=== PATIENT | female | born 2000 | race Caucasian/White ===

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

== ENCOUNTER 2019-05-06 08:32 | Emergency (ER) | payer SELFPAY ==
[2019-05-06] MEDS ORDERED: HYDROCODONE/CHLORPHEN 5 ML/OSYR ONE (09:44)
--- NOTE | 2019-05-06 10:26 | ER ---
Nurse's Notes [facility] Name: Violet Sams Age: 19 yrs Sex: Female : 2000 Arrival Date: 05/06/2019 Time: 08:37 Bed 6 Private MD: Diagnosis: Acute upper respiratory infection, unspecified Presentation: 05/05 08:44 Chief complaint: Patient states: coughing and sneezing that began 3 days ago. Denies ss fever. Coronavirus screen: The patient has NOT traveled to a country currently being monitored by the [facility] within the last 14 days. Proceed with normal triage procedures. Ebola Screen: Patient denies exposure to infectious person. Patient denies travel to an Ebola-affected area in the 21 days before illness onset. Initial Sepsis Screen: Does the patient meet any 2 criteria? No. Patient's initial sepsis screen is negative. Does the patient have a suspected source of infection? No. Patient's initial sepsis screen is negative. Risk Assessment: Do you want to hurt yourself or someone else? Patient reports no desire to harm self or others. 08:44 Method Of Arrival: Ambulatory ss 08:44 Acuity: LAURA 4 ss Historical: - Allergies: 08:46 No Known Allergies; ss - Home Meds: 08:46 Topamax Oral [Active]; ss - PSHx: 08:46 None; ss - Immunization history:: Adult Immunizations up to date. - Social history:: Smoking status: Patient denies any tobacco usage or history of. Screenin:49 Abuse screen: Denies threats or abuse. Nutritional screening: No deficits noted. em Tuberculosis screening: No symptoms or risk factors identified. Fall Risk None identified. Assessment: 09:28 General: Appears in no apparent distress. comfortable, Behavior is calm, cooperative, em Denies fever. Pain: Denies pain. Neuro: Level of Consciousness is awake, alert, obeys commands, Oriented to person, place, time, situation, Appropriate for age. Cardiovascular: Capillary refill < 3 seconds Patient's skin is warm and dry. Respiratory: Airway is patent Respiratory effort is even, unlabored, Respiratory pattern is regular, symmetrical, Breath sounds are clear bilaterally. GI: Patient currently denies nausea, vomiting. EENT: Nares are clear Oral mucosa is moist. Throat is clear is pink Reports pain when swallowing. Derm: Skin is intact, is healthy with good turgor, Skin is pink, warm \T\ dry. Musculoskeletal: Capillary refill < 3 seconds, Range of motion: intact in all extremities. Vital Signs: 08:44 BP 126 / 80; Pulse 76; Resp 15; Temp 97.0(TE); Pulse Ox 98% on R/A; Height 4 ft. 9 in. ss (144.78 cm); Pain 4/10; ED Course: 08:37 Patient arrived in ED. rg4 08:40 Teddy Donato NP is PHCP. pm1 08:40 Nsetor Montero MD is Attending Physician. pm1 08:41 Wagner Hameed, RN is Primary Nurse. em 08:46 Triage completed. ss 08:46 Arm band placed on right wrist. ss 08:49 Patient has correct armband on for positive identification. Bed in low position. Call em light in reach. Side rails up X2. Adult w/ patient. 09:30 Awaiting lab results. sv Administered Medications: 09:45 Drug: Tussionex Pennkinetic ER 5 ml Route: PO; em 10:30 Follow up: Response: No adverse reaction; Marked relief of symptoms em Outcome: 10:25 Discharge ordered by . pm1 10:45 Patient left the ED. ms Signatures: Carlie Trent RN RN Wagner Hameed RN RN em Villarreal, Maria ms Tabatha Walls RN RN Teddy Donato NP JUNIOR HIGH SCHOOL TEACHER pm1 Hansa Cook rg4
--- NOTE | 2019-05-06 10:26 | EDPHYS ---
Physician Documentation [facility] Name: Violet Sams Age: 19 yrs Sex: Female : 2000 Arrival Date: 05/06/2019 Time: 08:37 Bed 6 Private MD: ED Physician Nestor Montero HPI: 05/05 09:45 This 19 yrs old Female presents to ER via Ambulatory with complaints of Sore pm1 Throat, Cough. 09:45 The patient presents with sore throat. The patient describes throat pain as raw, pm1 scratchy. Onset: The symptoms/episode began/occurred 3 day(s) ago. Severity of symptoms: in the emergency department the symptoms are unchanged. Modifying factors: the symptoms are aggravated by swallowing, Patient's oral intake status: good. Associated signs and symptoms: Pertinent positives: cough, Pertinent negatives diarrhea, fever, shortness of breath, vomiting. The patient has not experienced similar symptoms in the past. The patient has not recently seen a physician. Historical: - Allergies: 08:46 No Known Allergies; ss - Home Meds: 08:46 Topamax Oral [Active]; ss - PSHx: 08:46 None; ss - Immunization history:: Adult Immunizations up to date. - Social history:: Smoking status: Patient denies any tobacco usage or history of. ROS: 09:45 Constitutional: Negative for fever, chills, and weight loss, Eyes: Negative for injury, pm1 pain, redness, and discharge. 09:45 Neck: Negative for injury, pain, and swelling, Cardiovascular: Negative for chest pain, palpitations, and edema. 09:45 Abdomen/GI: Negative for abdominal pain, nausea, vomiting, diarrhea, and constipation, Back: Negative for injury and pain, MS/Extremity: Negative for injury and deformity, Skin: Negative for injury, rash, and discoloration. 09:45 ENT: Positive for sore throat, Negative for ear pain. 09:45 Respiratory: Positive for cough, Negative for shortness of breath, sputum production, wheezing. 09:45 Neuro: Positive for dizziness, Negative for headache, numbness, tingling, visual changes. Exam: 09:45 Constitutional: This is a well developed, well nourished patient who is awake, alert, pm1 and in no acute distress. Head/Face: Normocephalic, atraumatic. Eyes: Pupils equal round and reactive to light, extra-ocular motions intact. Lids and lashes normal. Conjunctiva and sclera are non-icteric and not injected. Cornea within normal limits. Periorbital areas with no swelling, redness, or edema. ENT: Nares patent. No nasal discharge, no septal abnormalities noted. Tympanic membranes are normal and external auditory canals are clear. Oropharynx with no redness, swelling, or masses, exudates, or evidence of obstruction, uvula midline. Mucous membranes moist. Neck: Trachea midline, no thyromegaly or masses palpated, and no cervical lymphadenopathy. Supple, full range of motion without nuchal rigidity, or vertebral point tenderness. No Meningismus. Chest/axilla: Normal chest wall appearance and motion. Nontender with no deformity. No lesions are appreciated. Cardiovascular: Regular rate and rhythm with a normal S1 and S2. No gallops, murmurs, or rubs. Normal PMI, no JVD. No pulse deficits. Respiratory: Lungs have equal breath sounds bilaterally, clear to auscultation and percussion. No rales, rhonchi or wheezes noted. No increased work of breathing, no retractions or nasal flaring. Abdomen/GI: Soft, non-tender, with normal bowel sounds. No distension or tympany. No guarding or rebound. No evidence of tenderness throughout. Back: No spinal tenderness. No costovertebral tenderness. Full range of motion. Skin: Warm, dry with normal turgor. Normal color with no rashes, no lesions, and no evidence of cellulitis. MS/ Extremity: Pulses equal, no cyanosis. Neurovascular intact. Full, normal range of motion. 09:45 Neuro: Orientation: is normal, Motor: is normal, moves all fours, Gait: is steady, at a normal pace, without difficulty. Vital Signs: 08:44 BP 126 / 80; Pulse 76; Resp 15; Temp 97.0(TE); Pulse Ox 98% on R/A; Height 4 ft. 9 in. ss (144.78 cm); Pain 4/10; MDM: 08:43 Patient medically screened. pm1 10:24 Data reviewed: vital signs. Data interpreted: Pulse oximetry: on room air is 98 %. pm1 Interpretation: normal. Counseling: I had a detailed discussion with the patient and/or guardian regarding: the historical points, exam findings, and any diagnostic results supporting the discharge/admit diagnosis, lab results, the need for outpatient follow up, to return to the emergency department if symptoms worsen or persist or if there are any questions or concerns that arise at home. 10:27 ED course: FORESTRY AID Aware reviewed and no patient data found. pm1 05/05 09:16 Order name: Flu; Complete Time: 10:19 pm1 05/05 09:16 Order name: Strep; Complete Time: 10:19 pm1 05/05 10:06 Order name: Throat Culture EDMS Administered Medications: 09:45 Drug: Tussionex Pennkinetic ER 5 ml Route: PO; em 10:30 Follow up: Response: No adverse reaction; Marked relief of symptoms em Disposition: 11:18 Co-signature as Attending Physician, Nestor Montero MD. rn Disposition: 05/06/19 10:25 Discharged to Home. Impression: Acute upper respiratory infection, unspecified. - Condition is Stable. - Discharge Instructions: Antibiotic Resistance, Upper Respiratory Infection, Adult. - Prescriptions for Guaifenesin AC 10- 100 mg/5 mL Oral Liquid - take 10 milliliter by ORAL route every 4 hours As needed; 240 milliliter. - Work release form, Medication Reconciliation Form, Thank You Letter, Antibiotic Education, Prescription Opioid Use form. - Follow up: Emergency Department; When: As needed; Reason: Worsening of condition. Follow up: Private Physician; When: 2 - 3 days; Reason: Recheck today's complaints, Continuance of care, Re-evaluation by your physician. - Problem is new. - Symptoms have improved. Signatures: Dispatcher [employer] EDMS Wagner Hameed RN RN Fay Chavez ms, Roman, MD MD rn Smirch, Shelby, RN RN ss Marinas, Patrick, DANETTE MAITRE D pm1 Corrections: (The following items were deleted from the chart) 10:45 10:25 05/06/2019 10:25 Discharged to Home. Impression: Acute upper respiratory ms infection, unspecified. Condition is Stable. Forms are Medication Reconciliation Form, Thank You Letter, Antibiotic Education, Prescription Opioid Use. Follow up: Emergency Department; When: As needed; Reason: Worsening of condition. Follow up: Private Physician; When: 2 - 3 days; Reason: Recheck today's complaints, Continuance of care, Re-evaluation by your physician. Problem is new. Symptoms have improved. pm1
[2019-05-06 10:52] VITALS: BP 126/80; TEMP 97; O2SAT 98
== END 2019-05-06 10:45 | disposition home or self-care (01) ==
LOC: ER 08:32
DX: J06.9 Acute upper respiratory infection, unspecified (principal)
CPT/HCPCS: 87070; 87081; 87804; 99282

== ENCOUNTER 2019-07-13 08:52 | Emergency (ER) | payer SELFPAY ==
--- OUTSIDE RECORDS SUMMARY | 2019-07-13 08:55 | XMS REPORT ---
:2000 Author Organization [facility] t Address [address] [place] [address] Care Team Providers Name Role Phone RACHEL Attending Clinician Unavailable SALMA Attending Clinician Unavailable Problems Condition Condition Condition Status Onset Resolution Last Treating Co mments Source Name Details Category Date Date Treatment Clinician Date History of History of Problem Resolve Univers Anorexia Anorexia [facility] [place] [facility] History of History of Problem Resolve Univers major major d [place]y [place] [facility] History of History of Problem Resolve Univers PCOS PCOS [facility] [place] [facility] Anxiety Anxiety Problem Active [facility] [place] [facility] Major Major Problem Active Univers depression depression [facility] [place] [facility] BMI BMI Problem Active Univers 25.0-25.9, 25.0-25.9, it y of adult adult [place] Physici ans Allergies, Adverse Reactions, Alerts This patient has no known allergies or adverse reactions. Family History Family Member Diagnosis Comments Start Date Stop Date Source Sibling Family history of [facility] [place] [facility] Physicians Mother Family history of [facility] [place] [facility] Father Family history of [facility] [place] [facility] Physicians Social History Smoking Status Start Date Stop Date Source Never smoker University [facility] x[facility] Physicians Medications Ordered Filled Start Stop Current Ordering Indication Dosage Frequency Signature Comments Components Source Medication Medication Date Date Medication? Clinician (SIG) Name Name Vistaril 50 Vistaril 50 2017-02 Yes MINGO TAKE 1 Univers MG Oral MG Oral 1-12 SALMA CAPSULE AT ity of Capsule Capsule 00:00: N.P. BEDTIME. [place] as 00 Physici ans Lexapro 5 Lexapro 5 2017-02 Yes MINGO 1 QD TAKE 1 Univers MG Oral MG Oral 1-12 SALMA TABLET ity of Tablet Tablet 00:00: N.P. DAILY. [place] 00 Physici ans metFORMIN metFORMIN Yes QD TAKE 1 Uni vers HCl - 500 HCl - 500 TABLET ity of MG Oral MG Oral DAILY [place] Tablet Tablet DIRECTED. Physic i ans Lexapro 10 Lexapro 10 Yes Uni vers MG Oral MG Oral ity of Tablet Tablet [place] [facility]ici ans Vital Signs Vital Name Observation Time Observation Value Comments Source BP Systolic 2018-01-08 122 mm[Hg] Location: [facility] 11:35:00 Position: [place] Physician s Sitting BP Diastolic 2018-01-08 78 mm[Hg] Location: [facility] 11:35:00 Position: [place] Physician s Sitting Height 2018-01-08 62 [in_us] [facility] 11:35:00 [place] Physician s Weight 2018-01-08 138.6 [lb_av] [facility] 11:35:00 [place] [facility] s Body Mass Index 2018-01-08 25.35 kg/m2 [place] o f Calculated :35:00 [place] [facility] s Temperature 2018-01-08 97.6 [degF] [facility] 11:35:00 [place] [facility] Heart Rate 2018-01-08 65 /min [facility] 11:35:00 [place] [facility] Respiration Rate 2018-01-08 16 /min [facility] 11:35:00 [place] [facility] O2 SAT 2018-01-08 100 % [facility] 11:35:00 [place] [facility] Procedures Procedure Date / Time Performed Performing Clinician Sourc e [QLH] CBC (INCLUDES 2018-01-08 00:00:00 [facility] DIFF/PLT) Physicians [[facility]] CMP W/EGFR 2018-01-08 00:00:00 [facility] Physicians [facility] Physicians Encounters Start End Encounter Admission Attending Care Care Encounter Source Date/Time Date/Time Type Type Clinicians Facility Department ID 2018-02-08 2018-02-08 Manpreet ESME RAMOS [facility] [id number] Univers 12:00:00 12:00:00 t; GISELLE RAMOS, LAYBOY OPERATOR it y of ESME GISELLE, [place] LAYBOY OPERATOR Physici ans 2018-01-23 2018-01-23 REINA Shaffer [facility] [id number] Univers 09:00:00 09:00:00 t; DANETTE AGIULA ity of [place], [place] DANETTE AGUILA Physi ci ans 2018-01-08 2018-01-08 REINA Shaffer [facility] [id number] Univers 11:30:00 11:30:00 t; MINGO, JUNK DEALER Health and ity of [facility] DANETTE AGUILA Center - Phys jessenia Kimball ans Results Test Description Test Time Test Comments Results Result Comments Source [[facility]] CMP W/EGFR 2018-01-10 10:11:00 Test Item Value Reference Range Interpretation Comme nts GLUCOSE; Normal (test code = 84 mg/dl 65-99 N Fasting reference interval 1547-9) UREA NITROGEN (BUN) (test 8 mg/dl 7-20 N code = UREA NITROGEN (BUN)) CREATININE (test code = 0.71 mg/dl 0.50-1.00 N CREATININE) eGFR NON- 124 {ML/MIN/1.7} > OR = 60 N (test code = eGFR NON-) eGFR (test 144 {ML/MIN/1.7} > OR = 60 N code = eGFR ) BUN/CREATININE RATIO (test NOT APPLICABLE 08-18 code = BUN/CREATININE RATIO) SODIUM (test code = SODIUM) 141 mmol/L 135-146 N POTASSIUM (test code = 4.4 mmol/L 3.8-5.1 N POTASSIUM) CHLORIDE (test code = 105 mmol/L 98-110 N CHLORIDE) CARBON DIOXIDE (test code = 30 mmol/L 20-32 N CARBON DIOXIDE) CALCIUM (test code = CALCIUM) 9.1 mg/dl 8.9-10.4 N PROTEIN, TOTAL (test code = 6.6 g/dl 6.3-8.2 N PROTEIN, TOTAL) ALBUMIN (test code = ALBUMIN) 3.8 g/dl 3.6-5.1 N GLOBULIN (test code = 2.8 {G/DL CALC} 2.0-3.8 N GLOBULIN) ALBUMIN/GLOBULIN RATIO (test 1.4 {CALC} 1.0-2.5 N code = ALBUMIN/GLOBULIN RATIO) BILIRUBIN, TOTAL; Normal 0.3 mg/dl 0.2-1.1 N (test code = 43907-0) ALKALINE PHSPHATASE (test 110 u/l 47-176 N code = ALKALINE PHSPHATASE) AST; Normal (test code = 12 u/l 12-32 N 1916-6) ALT; Normal (test code = 10 u/l 5-32 N 1742-6) [facility] Physicians[[facility]] CBC (INCLUDES DIFF/PLT)2018-01-10 10:11:00 Test Item Value Reference Range Interpretation Comments WHITE BLOOD CELL COUNT 7.1 {Thousand/u} 4.5-13.0 N (test code = WHITE BLOOD CELL COUNT) RED BLOOD CELL COUNT (test 4.25 {Million/uL} 3.80-5.10 N code = RED BLOOD CELL COUNT) HEMAGLOBIN; Normal (test 12.2 g/dl 11.5-15.3 N code = 80817-5) HEMATOCRIT; Normal (test 37.4 % 34.0-46.0 N code = 4544-3) MCV; Normal (test code = 88.0 fL 78.0-98.0 N 787-2) MCHC; Normal (test code = 32.6 g/dl 31.0-36.0 N 25516-9) RDW; Normal (test code = 12.9 % 11.0-15.0 N 788-0) PLATELET COUNT; Normal 251 {Thousand/u} 140-400 N (test code = 777-3) MPV; Normal (test code = 10.9 fL 7.5-12.5 N 27928-1) ABSOLUTE NEUTROPHILS (test 4367 {cells/uL} 4110-4454 N code = ABSOLUTE NEUTROPHILS) ABSOLUTE LYMPHOCYTES (test 2066 {cells/uL} 1334-5565 N code = ABSOLUTE LYMPHOCYTES) ABSOLUTE MONOCYTES (test 561 {cells/uL} 200-900 N code = ABSOLUTE MONOCYTES) ABSOLUTE EOSINOPHILS (test 78 {cells/uL} 15-500 N code = ABSOLUTE EOSINOPHILS) ABSOLUTE BASOPHILS (test 28 {cells/uL} 0-200 N code = ABSOLUTE BASOPHILS) NEUTROPHILS (test code = 61.5 % N NEUTROPHILS) LYMPHOCYTES (test code = 29.1 % N LYMPHOCYTES) MONOCYTES; Normal (test 7.9 % N code = 67919-3) EOSINOPHILS; Normal (test 1.1 % N code = 04333-1) BASOPHILS; Normal (test 0.4 % N code = 15145-1) [facility] [place]
--- NOTE | 2019-07-13 09:49 | ER ---
Nurse's Notes [facility] Name: Violet Sams Age: 19 yrs Sex: Female : 2000 Arrival Date: 07/13/2019 Time: 08:54 Bed 17 Private MD: Diagnosis: Rash and other nonspecific skin eruption;Erythema multiforme Presentation: 07/12 09:21 Chief complaint: Patient states: stomach feels swollen, thinks she may be constipated, iw usually takes laxatives, last BM was morning but only a small amount, also has a rash X 4 days, was seen in [place] ER, was told it was either bug bites or folliculitis , was told to put hydrocortisone cream on it, rash started spreading yesterday, has itchiness to palm of hands and feet. Coronavirus screen: Proceed with normal triage. Patient denies a cough. Patient denies shortness of breath or difficulty breathing. Patient denies measured and/or subjective temperature greater than 100.4F prior to today's visit. Patient denies travel on a cruise ship or to a country the [facility] currently lists as an affected area. Patient denies contact with known and/or suspected case of COVID-19. Ebola Screen: Patient negative for fever greater than or equal to 101.5 degrees Fahrenheit, and additional compatible Ebola Virus Disease symptoms Patient denies exposure to infectious person. Patient denies travel to an Ebola-affected area in the 21 days before illness onset. No symptoms or risks identified at this time. Anaphylaxis evaluation, the patient reports or I have noted the following symptoms which indicate a significant risk of anaphylaxis:. Initial Sepsis Screen: Does the patient meet any 2 criteria? No. Patient's initial sepsis screen is negative. Does the patient have a suspected source of infection? No. Patient's initial sepsis screen is negative. Risk Assessment: Do you want to hurt yourself or someone else? Patient reports no desire to harm self or others. 09:21 Method Of Arrival: Ambulatory iw 09:21 Acuity: LAURA 3 iw 09:24 Onset of symptoms was July 09, 2019. iw Historical: - Allergies: 09: No Known Allergies; iw - Home Meds: 09:26 Lexapro 20 mg Oral tab 1 tab once daily [Active]; phentermine oral oral once daily iw [Active]; 09:27 Topamax Oral [Active]; iw - PSHx: 09:26 None; iw - Family history:: not pertinent. - Hospitalizations: : No recent hospitalization is reported. Screenin:45 Abuse screen: Denies threats or abuse. Nutritional screening: No deficits noted. aa5 Tuberculosis screening: No symptoms or risk factors identified. Fall Risk None identified. Assessment: 09:45 General: Appears comfortable, Behavior is calm, cooperative. Pain: Denies pain. Neuro: aa5 Level of Consciousness is awake, alert, obeys commands, Oriented to person, place, time, situation. Cardiovascular: Patient's skin is warm and dry. Respiratory: Airway is patent Respiratory effort is even, unlabored, Respiratory pattern is regular, symmetrical. GI: Abdomen is round non-distended, Bowel sounds present X 4 quads. Abd is soft and non tender X 4 quads. Pt reports pain with BM yesterday. : No signs and/or symptoms were reported regarding the genitourinary system. EENT: No signs and/or symptoms were reported regarding the EENT system. Derm: Rash noted that is red, raised, on abdomen. Musculoskeletal: Range of motion: intact in all extremities. 10:25 Reassessment: Patient is alert, oriented x 3, equal unlabored respirations, skin aa5 warm/dry/pink. Vital Signs: 09:21 BP 127 / ???; Pulse 69; Resp 16; Temp 97.9; Pulse Ox 97% on R/A; Weight 70.76 kg; iw ED Course: 08:54 Patient arrived in ED. as 09:24 Triage completed. iw 09:27 Arm band placed on. iw 09:29 Nestor Montero MD is Attending Physician. rn 09:30 Jaylene Avina, ELTON is Primary Nurse. aa5 09:45 Patient has correct armband on for positive identification. Placed in gown. Bed in low aa5 position. Call light in reach. Side rails up X2. 10:25 No provider procedures requiring assistance completed. Patient did not have IV access aa5 during this emergency room visit. Administered Medications: 09:57 Drug: SOLU-Medrol 125 mg Route: IM; Site: right deltoid; aa5 10:25 Follow up: Response: No adverse reaction aa5 Outcome: 09:49 Discharge ordered by . rn 10:25 Discharged to home ambulatory. aa5 10:25 Condition: stable 10:25 Discharge instructions given to patient, Instructed on discharge instructions, follow up and referral plans. medication usage, Demonstrated understanding of instructions, follow-up care, medications, Prescriptions given X 2. 10:30 Patient left the ED. aa5 Signatures: Lilliam Weiner Irene, RN Nestor Dias MD MD rn Calderon, Audri, RN RN aa5
--- NOTE | 2019-07-13 09:49 | EDPHYS ---
Physician Documentation [facility] Name: Violet Sams Age: 19 yrs Sex: Female : 2000 Arrival Date: 07/13/2019 Time: 08:54 Bed 17 Private MD: ED Physician Nestor Montero HPI: 07/12 09:40 This 19 yrs old Female presents to ER via Ambulatory with complaints of Rash, rn Itching, constipation. 09:40 The patient's rash thought to be caused by an unknown cause. The rash is located on the rn abdomen. The rash can be described as erythematous. Onset: The symptoms/episode began/occurred 1 week(s) ago. Severity of symptoms: At their worst the symptoms were mild in the emergency department the symptoms are unchanged. The patient has not experienced similar symptoms in the past. The patient has been recently seen by a physician:. Reports rash for a few days, itchy, seen at outside ER this week and told might be bed bugs or bites. No fever. Reports rash is worse but has not spread from torso. Also reports constipation, is common for her, last BM this morning, usually helped by laxatives, no vomiting. . Historical: - Allergies: 09:26 No Known Allergies; iw - Home Meds: 09:26 Lexapro 20 mg Oral tab 1 tab once daily [Active]; phentermine oral oral once daily iw [Active]; 09:27 Topamax Oral [Active]; iw - PSHx: 09:26 None; iw - Family history:: not pertinent. - Hospitalizations: : No recent hospitalization is reported. ROS: 09:40 Constitutional: Negative for fever, chills, and weight loss, Eyes: Negative for injury, rn pain, redness, and discharge, Cardiovascular: Negative for chest pain, palpitations, and edema, Respiratory: Negative for shortness of breath, cough, wheezing, and pleuritic chest pain, Abdomen/GI: + constipation MS/Extremity: Negative for injury and deformity, Skin: + rash Neuro: Negative for headache, weakness, numbness, tingling, and seizure. Exam: 09:40 Constitutional: This is a well developed, well nourished patient who is awake, alert, rn and in no acute distress. Ambulatory to room without difficulty or assistance. Head/Face: Normocephalic, atraumatic. Eyes: Pupils equal round and reactive to light, extra-ocular motions intact. Lids and lashes normal. Conjunctiva and sclera are non-icteric and not injected. Cornea within normal limits. Periorbital areas with no swelling, redness, or edema. Cardiovascular: Regular rate and rhythm. No pulse deficits. Respiratory: No increased work of breathing, no retractions or nasal flaring. Abdomen/GI: soft, non-tender, no peritoneal signs. Skin: Warm, dry, anterior torso with numerous target-like erythematous lesions, no bullae, no skin sloughing, no rash on palms/soles/extremities. Rash blanches. MS/ Extremity: Pulses equal, no cyanosis. Neurovascular intact. Full, normal range of motion. Equal circumference. Vital Signs: 09:21 BP 127 / ???; Pulse 69; Resp 16; Temp 97.9; Pulse Ox 97% on R/A; Weight 70.76 kg; iw MDM: 09:29 Patient medically screened. rn 09:48 Differential diagnosis: fungal infection, bug bites, erythema multiforme. Data rn reviewed: vital signs, nurses notes, and as a result, I will discharge patient. Counseling: I had a detailed discussion with the patient and/or guardian regarding: the historical points, exam findings, and any diagnostic results supporting the discharge/admit diagnosis, the need for outpatient follow up, to return to the emergency department if symptoms worsen or persist or if there are any questions or concerns that arise at home. Special discussion: I discussed with the patient/guardian in detail that at this point there is no indication for admission to the hospital. It is understood, however, that if the symptoms persist or worsen the patient needs to return immediately for re-evaluation. Administered Medications: 09:57 Drug: SOLU-Medrol 125 mg Route: IM; Site: right deltoid; aa5 10:25 Follow up: Response: No adverse reaction aa5 Disposition: 07/13/19 09:49 Discharged to Home. Impression: Rash and other nonspecific skin eruption, Erythema multiforme. - Condition is Stable. - Discharge Instructions: Erythema Multiforme, Rash. - Prescriptions for Hydroxyzine HCl 50 mg Oral Tablet - take 1 tablet by ORAL route every 8-12 hours As needed; 20 tablet. Medrol (Nicola) 4 mg Oral Tablets, Dose Pack - take 1 tablet by ORAL route as directed - follow package instructions; 1 packet. - Medication Reconciliation Form, Thank You Letter, Antibiotic Education, Prescription Opioid Use, Work release form form. - Follow up: Private Physician; When: As needed; Reason: Recheck today's complaints, Re-evaluation by your physician. - Problem is new. - Symptoms are unchanged. Signatures: May Suggs RN RN iw Nieto, Roman, MD MD rn Calderon, Audri, RN RN aa5 Corrections: (The following items were deleted from the chart) 10:30 09:49 07/13/2019 09:49 Discharged to Home. Impression: Rash and other nonspecific skin aa5 eruption; Erythema multiforme. Condition is Stable. Forms are Medication Reconciliation Form, Thank You Letter, Antibiotic Education, Prescription Opioid Use. Follow up: Private Physician; When: As needed; Reason: Recheck today's complaints, Re-evaluation by your physician. Problem is new. Symptoms are unchanged. rn
[2019-07-13] MEDS ORDERED: METHYLPREDNISOLONE 125 MG INJ ONE (09:56)
[2019-07-13 10:42] VITALS: TEMP 97.9; O2SAT 97
== END 2019-07-13 10:30 | disposition home or self-care (01) ==
LOC: ER 08:52
DX: L51.9 Erythema multiforme, unspecified (principal)
CPT/HCPCS: 96372; 99283; J2930

== ENCOUNTER 2019-12-17 17:46 | Emergency (ER) | payer SELFPAY ==
--- OUTSIDE RECORDS SUMMARY | 2019-12-17 17:49 | XMS REPORT | Continuity of Care Document ---
:2000 Author Organization [facility] r Address [address] [place] [address] Care Team Providers Name Role Phone Severiano Foster Unavailable Unavailable Fidelina Gonzáles Unavailable Unavailable Privacy Markings Section Author: Services, Services PROHIBITION ON REDISCLOSURE OF CONFIDENTIAL INFORMATIONThis notice accompanies a disclosure of information concerning a client made to you with the consentof such client. Reason for Referral Reason For Referral excluded/not available Assessments Assessments excluded/not available Problems Borderline personality disorder (F60.3) Onset: 28-Nov-2019 Mental Status Mental Status excluded/not available Functional Status Functional Status excluded/not available Allergies and Adverse Reactions No Known Allergies Medications Vistaril; orally once a day (at bedtime) Ordered: 28-Nov-2019 Generic Substitution Allowed Quantity: 0 Alex, Kamilah G. Refills: 0 Lexapro 20 mg oral tablet; 1 tab(s) orally once a day Ordere d: 28-Nov-2019 Generic Substitution Allowed Quantity: 0 [place], Kamilah G. Refills: 0 Topamax 25 mg oral tablet; orally once a day (at bedtime) Or dered: 28-Nov-2019 Generic Substitution Allowed Quantity: 0 Alex, Kamilah G. Refills: 0 Procedures Procedures excluded/not available Immunizations Immunizations excluded/not available Family History Family History excluded/not available Social History Tobacco smoking consumption unknown Female Foreign Travel Foreign Travel excluded/not available Health Concerns Health Concerns excluded/not available Goals Goals excluded/not available Nutrition Nutrition excluded/not available Hospital Discharge Instructions Hospital Discharge Instructions excluded/not available Medical Equipment Medical Equipment excluded/not available Plan of Treatment DiphenhydrAMINE; 25 mg PO PRN q6hr Start: 28-Nov-2019 Inten t for EPS NTE 100 mg in 24 hours Ordered: 28-Nov-2019 Routine Nguyen Medrano Comments: NTE 100 mg in 24 hours HydrOXYzine; 25 mg PO PRN q6hr for Start: 28-Nov-2019 Inten t Anxiety NTE 100mg in 24 hours Ordered: 28-Nov-2019 Routine Nguyen Medrano Comments: NTE 100mg in 24 hours Citalopram*; 20 mg PO/By mouth for Start: 02-Dec-2019 Inten t Depression Take one pill in the Ordered: 02-Dec-2019 morning Severiano Foster ARIPiprazole*; 5 mg PO/By mouth for Start: 02-Dec-2019 Inte nt Mood Take one pill in the morning Ordered: 02-Dec-2019 Severiano Foster Assess and involve in group therapy Start: [id number] R equest Brief Individual Intervention - Adult Start: 2-Udr-[id number]:34 Request Management of Emotions Start: :37 Request Mgmt of Mental Illness (On Unit) Start: :37 Requ est Spirituality Start: :37 Request Therapeutic Recreation Start: :37 Request Vegetarian Diet Start: 5-Xom-676694:22 Request Vital Signs - Routine Start: 9-Che-512228:37 Request Discharge Patient Start: 5-Rrh-794976:49 Request Results Urine Drug Screen 7 Ordered On: 29-Nov-20196:07 29-Nov-2019 12:37 Amphetamine Methamphetmine Range: Cutof f=100 ng/mL 563418 Negative ng/mL Comments: Amphetam ine test includes Amphetamine and Methamphetamine. Barbiturate (983234) Negative Range: Cu qwwu=229 ng/mL ng/mL Benzodiazepines (085471) Range: Cutoff= 300 ng/mL Negative ng/mL Cocaine Metabolite (880804) Range: Cuto bh=696 ng/mL Negative ng/mL Phencyclidine (648177) Negative Range: Cutoff=25 ng/mL ng/mL Cannabinoid (218586) Negative Range: Cu toff=50 ng/mL ng/mL Opiates (003324) Negative ng/mL Range: Txslrt=204 ng/mL Comments: Opiate flaco t includes Codeine and Morphine only. 29-Nov-2019 10:39 Drug Screen Comment NOTE : .This analysis is performed by immunoassay. Positivefindings are unconfirmed analytical test results; ifresults do not support expected clinical finding,confirmation by an alternate methodology is recommended.Patient metabolic variables, specific drug chemistry, andspecimen characteristics can affect test outcome.Technical consultation is available [email or web address], or call toll free [phone]. Test, Urine Ordered On: 29-Nov-20196:07 30-Nov-2019 8:44 Test, Urine Negative Range: N egative Comprehensive Metabolic Ordered On: 29-Nov-20196:01 Panel 29-Nov-2019 14:32 Glucose,Serum 91 mg/dL Range: 65 - 99 m g/dL BUN 14 mg/dL Range: 6 - 20 mg/dL Creatinine,Serum 0.79 mg/dL Range: 0.57 - 1.00 mg/dL eGFR If NonAfrican Am (135959) Range: > 59 mL/min/1.73 108 mL/min/1.73 eGFR If Am (715873) 125 Range: >59 mL/min/1.73 mL/min/1.73 BUN/Creat Ratio 18 Range: 9 - 23 Sodium 143 mmol/L Range: 134 - 144 mm ol/L Potassium 4.2 mmol/L Range: 3.5 - 5.2 m mol/L Chloride 104 mmol/L Range: 96 - 106 mmo l/L zzzCO2 26 mmol/L Range: 20 - 29 mmol /L Calcium 9.4 mg/dL Range: 8.7 - 10.2 m g/dL Protein, Total 6.8 g/dL Range: 6.0 - 8. 5 g/dL Albumin 4.1 g/dL Range: 3.9 - 5.0 g/ dL Globulin, Total 2.7 g/dL Range: 1.5 - 4 .5 g/dL A/G Ratio 1.5 Range: 1.2 - 2.2 Bilirubin, Total <0.2 mg/dL Range: 0.0 - 1.2 mg/dL Alkaline Phosphatase 122 {IU/L} Range: 39 - 117 IU/L AST 11 {IU/L} Range: 0 - 40 IU/L ALT 9 {IU/L} Range: 0 - 32 IU/L TSH Ordered On: 29-Nov-20196:01 29-Nov-2019 14:32 TSH (645546) 1.190 {uIU/mL} Range: 0.45 0 - 4.50 uIU/mL Lipid Panel with LDL/HDL Ordered On: :01 Ratio 29-Nov-2019 14:32 zzzCholesterol, Total 138 mg/dL Range: 100 - 199 mg/dL Triglycerides 71 mg/dL Range: 0 - 149 m g/dL zzzHDL Cholesterol 54 mg/dL Range: >39 mg/dL VLDL Cholesterol Calculated 14 Range: 5 - 40 mg/dL mg/dL LDL Cholesterol [facility] ([facility]) 70 Range: 0 - 99 mg/dL mg/dL LDL/HDL Ratio (097213) 1.3 Range: 0.0 - 3.2 ratio {ratio} Comments: . LDL/HDL Ratio Men Women 1/2 Avg.Risk 1.0 1. 5 Avg.Risk 3.6 3.2 2X Avg.Risk 6.2 5.0 3X Avg.Risk 8.0 6.1 Vital Signs Vital Signs excluded/not available Advance Directives Advance Directives excluded/not available Encounters Inpatient 28-Nov-2019 13:40 To 02-Dec-2019 13:02 Encounter Diagnosis: Major depressive disorder, recurrent, unspecified Severiano Foster [id number] Payers Payers excluded/not available ASAD HENRY [address] [address] tel:
--- OUTSIDE RECORDS SUMMARY | 2019-12-17 17:49 | XMS REPORT | Continuity of Care Document ---
:2000 Author Organization [facility] t Address [address] [place] [address] Care Team Providers Name Role Phone UDOKA Attending Clinician Unavailable SALMA Attending Clinician Unavailable Problems Condition Condition Condition Status Onset Resolution Last Treating Co mments Source Name Details Category Date Date Treatment Clinician Date History of History of Problem Resolve [facility] Anorexia Anorexia [facility] [place] [facility] History of History of Problem Resolve Univers major major d ity of depression depression [facility] Physici ans History of History of Problem Resolve Univers PCOS PCOS [facility] [place] [facility] Anxiety Anxiety Problem Active [facility] [place] [facility] Major Major Problem Active [facility] depression depression [facility] [place] [facility] BMI BMI Problem Active Univers 25.0-25.9, 25.0-25.9, it y of adult adult [place] [facility] Allergies, Adverse Reactions, Alerts This patient has no known allergies or adverse reactions. Family History Family Member Diagnosis Comments Start Date Stop Date Source Sibling Family history of [facility] [place] [facility] Mother Family history of [facility] [place] [facility] Father Family history of [facility] [place] [facility] Social History Smoking Status Start Date Stop Date Source Never smoker [facility] Physicians Medications Ordered Filled Start Stop Current Ordering Indication Dosage Frequency Signature Comments Components Source Medication Medication Date Date Medication? Clinician (SIG) Name Name Vistaril 50 Vistaril 50 2018- Yes MINGO TAKE 1 Univers MG Oral MG Oral 1-12 SALMA CAPSULE AT ity of Capsule Capsule 00:00: N.P. BEDTIME. [place] as 00 Physici ans Lexapro 5 Lexapro 5 2017-02 Yes MINGO 1 QD TAKE 1 Univers MG Oral MG Oral 1-12 SALMA TABLET ity of Tablet Tablet 00:00: N.P. DAILY. [place] 00 Physici ans metFORMIN metFORMIN Yes QD TAKE 1 Uni vers HCl - 500 HCl - 500 TABLET ity of MG Oral MG Oral DAILY [place] Tablet Tablet DIRECTED. Physic i ans Lexapro 10 Lexapro 10 Yes Uni vers MG Oral MG Oral ity of Tablet Tablet [place] [facility]ici ans Vital Signs Vital Name Observation Time Observation Value Comments Source BP Systolic 2018-01-08 122 mm[Hg] Location: [facility] 11:35:00 Position: [place] Physician s Sitting BP Diastolic 2018-01-08 78 mm[Hg] Location: [facility] 11:35:00 Position: [place] Physician s Sitting Height 2018-01-08 62 [in_us] [facility] 11:35:00 [place] [facility] s Weight 2018-01-08 138.6 [lb_av] [facility] 11:35:00 [place] [facility] Body Mass Index 2018-01-08 25.35 kg/m2 [facility] o f Calculated 11:35:00 [place] [facility] Temperature 2018-01-08 97.6 [degF] [facility] 11:35:00 [place] [facility] Heart Rate 2018-01-08 65 /min [facility] 11:35:00 [place] [facility] Respiration Rate 2018-01-08 16 /min [facility] 11:35:00 [place] [facility] O2 SAT 2018-01-08 100 % [facility] 11:35:00 [place] [facility] Procedures Procedure Date / Time Performed Performing Clinician Sourc e [QLH] CBC (INCLUDES 2018-01-08 00:00:00 [facility] DIFF/PLT) Physicians [QL] CMP W/EGFR 2018-01-08 00:00:00 [facility] Physicians History of Lung [facility] surgery Physicians Encounters Start End Encounter Admission Attending Care Care Encounter Source Date/Time Date/Time Type Type Clinicians Facility Department ID 2019-11-28 2019-12-02 Outpatient HCPCDOCS HCPCDOCS [id number] 13:40:00 13:02:00 91 2018-02-08 2018-02-08 Appointmen ESME RAMOS [facility] [id number] 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.] 0.3 mg/dl 0.2-1.1 N (test code = 82652-7) ALKALINE PHSPHATASE (test 110 u/l 47-176 N code = ALKALINE PHSPHATASE) AST; Normal (test code = 12 u/l 12-32 N 1916-6) ALT; Normal (test code = 10 u/l 5-32 N 1742-6) [facility]] CBC (INCLUDES DIFF/PLT)2018-01-10 10:11:00 Test Item Value Reference Range Interpretation Comments WHITE BLOOD CELL COUNT 7.1 {Thousand/u} 4.5-13.0 N (test code = WHITE BLOOD CELL COUNT) RED BLOOD CELL COUNT (test 4.25 {Million/uL} 3.80-5.10 N code = RED BLOOD CELL COUNT) HEMAGLOBIN; Normal (test 12.2 g/dl 11.5-15.3 N code = 67092-0) HEMATOCRIT; Normal (test 37.4 % 34.0-46.0 N code = 4544-3) MCV; Normal (test code = 88.0 fL 78.0-98.0 N 787-2) MCHC; Normal (test code = 32.6 g/dl 31.0-36.0 N 63886-8) RDW; Normal (test code = 12.9 % 11.0-15.0 N 788-0) PLATELET COUNT; Normal 251 {Thousand/u} 140-400 N (test code = 777-3) MPV; Normal (test code = 10.9 fL 7.5-12.5 N 95577-6) ABSOLUTE NEUTROPHILS (test 4367 {cells/uL} 6217-8095 N code = ABSOLUTE NEUTROPHILS) ABSOLUTE LYMPHOCYTES (test 2066 {cells/uL} 6626-8319 N code = ABSOLUTE LYMPHOCYTES) ABSOLUTE MONOCYTES (test 561 {cells/uL} 200-900 N code = ABSOLUTE MONOCYTES) ABSOLUTE EOSINOPHILS (test 78 {cells/uL} 15-500 N code = ABSOLUTE EOSINOPHILS) ABSOLUTE BASOPHILS (test 28 {cells/uL} 0-200 N code = ABSOLUTE BASOPHILS) NEUTROPHILS (test code = 61.5 % N NEUTROPHILS) LYMPHOCYTES (test code = 29.1 % N LYMPHOCYTES) MONOCYTES; Normal (test 7.9 % N code = 96224-2) EOSINOPHILS; Normal (test 1.1 % N code = 22467-6) BASOPHILS; Normal (test 0.4 % N code = 14046-9) [facility]
[2019-12-17] MEDS ORDERED: MORPHINE 4 MG/ML SYR ONE (19:32)
[2019-12-17] MEDS ORDERED: ONDANSETRON 4 MG/2 ML VIAL ONE (19:32)
[2019-12-17 19:43] LABS: Absolute Lymphocytes (CBC) 2.3 K/uL (0.7-4.9); Basophils % 0.6 % (0-1.3); Hematocrit 38.1 % (36.0-45.0); RBC Red Blood Cell Count 4.52 M/uL (3.86-4.86)
[2019-12-17 20:00] LABS: Urine Bacteria <20 /HPF (<20); Urine Culture Reflex Order NOT NEEDED; Urine RBC <5 /HPF (NONE SEEN)
[2019-12-17 20:01] LABS: Urine Blood TRACE (NEG); Urine Glucose NEGATIVE (NEG); Urine Protein NEGATIVE (NEG); Urine Specific Gravity 1.025 (1.005-1.030)
[2019-12-17 20:06] LABS: Albumin 3.9 g/dL (3.4-5.0); Bilirubin Direct 0.1 mg/dL (0-0.2); Bilirubin Total 0.4 mg/dL (0.2-1.0); Potassium 3.5 mmol/L (3.5-5.1); Protein, Total 8.4 g/dL (6.4-8.2)
--- NOTE | 2019-12-17 20:26 | RAD REPORT ---
EXAM DESCRIPTION: CT - Abdomen Pelvis W Contrast - 12/17/2019 7:41 pm CLINICAL HISTORY: Abdominal pain/right-sided abdominal pain COMPARISON: none. TECHNIQUE: Computed axial tomography of the abdomen pelvis was obtained. 100 cc Isovue-300 was admin istered intravenously. Oral contrast was not requested which limits evaluation of bowel and appendix. All CT scans are performed using dose optimization technique as appropriate and may include automated exposure control or mA/KV adjustment according to patient size. FINDINGS: The liver, spleen, pancreas, adrenal and kidneys appear unremarkable. There is no evidence of diverticulitis. The appendix is not visualized. Tiny umbilical hernia Moderate at stool within the colon IMPRESSION: Moderate amount stool within the colon The appendix is not visualized. If patient has clinical symptoms to suggest appendicitis then a CT sc an with oral contrast and opacification of terminal ileum/cecum would be recommended
--- NOTE | 2019-12-17 20:43 | EDPHYS ---
Physician Documentation [facility] Name: Violet Sams Age: 19 yrs Sex: Female : 2000 Arrival Date: 12/17/2019 Time: 17:49 Bed 2 Private MD: ED Physician Patel Mckenna HPI: 12/16 17:54 This 19 yrs old Female presents to ER via Ambulatory with complaints of jmm Kidney Pain. 17:54 The patient complains of pain in the right flank. Onset: The symptoms/episode jmm began/occurred 2 hour(s) ago. Modifying factors: The symptoms are alleviated by nothing. the symptoms are aggravated by nothing. Associated signs and symptoms: Pertinent negatives: fever, vomiting. This is a 19 year old female that presents to the ED with complaints of right flank pain beginning approx 2 hours ago. Patient states also have mild right sided abdominal pain. Denies fever, vomiting, diarrhea. . WIG STYLIST: 18:54 LMP 06/17/2019, Patient states menstrual cycle is Irregular. vg1 Historical: - Allergies: 18:19 No Known Allergies; ll1 - PSHx: 18:19 premature baby surgery; ll1 - Immunization history:: Flu vaccine is not up to date. - Social history:: Smoking status: Patient denies any tobacco usage or history of. ROS: 17:54 Constitutional: Negative for fever, chills, and weight loss, Cardiovascular: Negative jmm for chest pain, palpitations, and edema, Respiratory: Negative for shortness of breath, cough, wheezing, and pleuritic chest pain. 17:54 Abdomen/GI: Positive for abdominal pain. 17:54 Back: Positive for flank pain, on the right. 17:54 All other systems are negative. Exam: 17:54 Constitutional: This is a well developed, well nourished patient who is awake, alert, jmm and in no acute distress. Head/Face: atraumatic. Eyes: EOMI, no conjunctival erythema appreciated ENT: Moist Mucus Membranes Neck: Trachea midline, Supple Chest/axilla: Normal chest wall appearance and motion. Cardiovascular: Regular rate and rhythm. No edema appreciated Respiratory: Normal respirations, no respiratory distress appreciated 17:54 Skin: General appearance color normal MS/ Extremity: Moves all extremities, no obvious deformities appreciated, no edema noted to the lower extremities Neuro: Awake and alert, normal gait Psych: Behavior is normal, Mood is normal, Patient is cooperative and pleasant 17:54 Abdomen/GI: Inspection: abdomen appears normal, Bowel sounds: normal, Palpation: soft, mild abdominal tenderness, in the right upper quadrant and right lower quadrant. 17:54 Back: CVA tenderness, that is moderate, is noted on the right. Vital Signs: 18:16 Pulse 91; Resp 18; Temp 98.3; Pulse Ox 100% ; Weight 73.48 kg; Height 4 ft. 10 in. ll1 (147.32 cm); Pain 6/10; 19:15 BP 118 / 72; Pulse 88; Resp 16; Pulse Ox 100% on R/A; jb4 20:25 BP 109 / 68; Pulse 85; Resp 16; Pulse Ox 100% on R/A; jb4 18:16 Body Mass Index 33.86 (73.48 kg, 147.32 cm) ll1 MDM: 19:02 Patient medically screened. [facility] 20:42 Data reviewed: vital signs, nurses notes. Counseling: I had a detailed discussion with hernesto the patient and/or guardian regarding: the historical points, exam findings, and any diagnostic results supporting the discharge/admit diagnosis, radiology results, the need for outpatient follow up, to return to the emergency department if symptoms worsen or persist or if there are any questions or concerns that arise at home. ED course: Patient is alert and non toxic in appearance in the ED. Patient is given early appendicitis return precautions. patient understood and agrees with the plan of care. . 12/16 17:54 Order name: Urine Microscopic Only; Complete Time: 20:10 snw 12/16 19:10 Order name: Basic Metabolic Panel; Complete Time: 20:10 [facility] 12/16 19:10 Order name: CBC with Diff; Complete Time: 20:10 [facility] 12/16 19:10 Order name: Hepatic Function; Complete Time: 20:10 [facility] 12/16 19:10 Order name: Lipase; Complete Time: 20:10 [facility] 12/16 19:10 Order name: Urine Culture [facility] 12/16 17:54 Order name: Urine Dipstick-Ancillary (obtain specimen); Complete Time: 19:06 snw 12/16 19:10 Order name: IV Saline Lock; Complete Time: 19:38 [facility] 12/16 19:10 Order name: Labs collected and sent; Complete Time: 19:38 [facility] 12/16 19:10 Order name: CT Abd/Pelvis - IV Contrast Only; Complete Time: 20:34 [facility] 12/16 19:15 Order name: Urine Dipstick--Ancillary (enter results); Complete Time: 20:10 tt3 12/16 19:15 Order name: Urine --Ancillary (enter results); Complete Time: 20:10 tt3 Administered Medications: 19:28 Drug: Zofran (Ondansetron) 4 mg Route: IVP; Site: right forearm; jb4 20:59 Follow up: Response: No adverse reaction; Nausea is decreased 19:30 Drug: morphine 4 mg Route: IVP; Site: right forearm; jb4 21:00 Follow up: Response: No adverse reaction; Pain is decreased; RASS: Alert and Calm (0) Disposition: 12/17 06:26 Co-signature as Attending Physician, Patel Mckenna MD I agree with the assessment and kdr plan of care. Disposition: 12/17/19 20:43 Discharged to Home. Impression: Flank Pain. - Condition is Stable. - Discharge Instructions: Flank Pain, Adult. - Prescriptions for orphenadrine citrate 100 mg Oral Tablet Sustained Release - take 1 tablet by ORAL route 2 times per day As needed; 20 tablet. - Medication Reconciliation Form, Thank You Letter, Antibiotic Education, Prescription Opioid Use form. - Follow up: Private Physician; When: 2 - 3 days; Reason: Recheck today's complaints, Continuance of care, Re-evaluation by your physician. Signatures: Dispatcher [employer] EDPatel Guaman MD MD kdr Waters, Shelly, SENIOR INFORMATICA DEVELOPER-C SENIOR INFORMATICA DEVELOPER-Raymond Browne PA PA jmm Bryson, James, RN RN jb4 Ara Arrington Lynsay, RN RN ll1 Corrections: (The following items were deleted from the chart) 12/16 21:00 20:43 12/17/2019 20:43 Discharged to Home. Impression: Flank Pain. Condition is Stable. wh Forms are Medication Reconciliation Form, Thank You Letter, Antibiotic Education, Prescription Opioid Use. Follow up: Private Physician; When: 2 - 3 days; Reason: Recheck today's complaints, Continuance of care, Re-evaluation by your physician. hernesto
--- NOTE | 2019-12-17 20:43 | ER ---
Nurse's Notes [facility] Name: Violet Sasm Age: 19 yrs Sex: Female : 2000 Arrival Date: 12/17/2019 Time: 17:49 Bed 2 Private MD: Diagnosis: Flank Pain Presentation: 12/16 18:16 Chief complaint: Patient states: Right lower back pain for 1.5 hours. Denies urinary ll1 symptoms. No N/V/D. No fever. Vaginal spotting began today. Coronavirus screen: Client denies travel out of the [place] in the last 14 days. At this time, the client does not indicate any symptoms associated with coronavirus-19. Ebola Screen: Patient denies travel to an Ebola-affected area in the 21 days before illness onset. Initial Sepsis Screen: Does the patient meet any 2 criteria? HR > 90 bpm. No. Patient's initial sepsis screen is negative. Does the patient have a suspected source of infection? Yes: Dysuria/Frequency/Urgency/UTI. Risk Assessment: Do you want to hurt yourself or someone else? Patient reports no desire to harm self or others. Onset of symptoms was December 17, 2019. 18:16 Method Of Arrival: Ambulatory ll1 18:16 Acuity: LAURA 4 ll1 REEL WINDER: 18:54 LMP 06/17/2019, Patient states menstrual cycle is Irregular. vg1 Historical: - Allergies: 18:19 No Known Allergies; ll1 - PSHx: 18:19 premature baby surgery; ll1 - Immunization history:: Flu vaccine is not up to date. - Social history:: Smoking status: Patient denies any tobacco usage or history of. Screenin:50 Abuse screen: Denies threats or abuse. Nutritional screening: No deficits noted. vg1 Tuberculosis screening: No symptoms or risk factors identified. Fall Risk No fall in past 12 months (0 pts). Ambulatory Aid- None/Bed Rest/Nurse Assist (0 pts). Gait- Normal/Bed Rest/Wheelchair (0 pts) Mental Status- Oriented to own ability (0 pts). Total Wells Fall Scale indicates No Risk (0-24 pts). Assessment: 18:49 General: Appears in no apparent distress. comfortable, Behavior is calm, cooperative. vg1 Pain: Complains of pain in Right lower back Pain currently is 7 out of 10 on a pain scale. Quality of pain is described as sharp, Pain began 2 hours ago. Is intermittent. Neuro: Level of Consciousness is awake, alert, obeys commands, Oriented to person, place, time, situation. Cardiovascular: Capillary refill < 3 seconds Patient's skin is warm and dry. Respiratory: Airway is patent Respiratory effort is even, unlabored, Respiratory pattern is regular, symmetrical. GI: No signs and/or symptoms were reported involving the gastrointestinal system. Patient currently denies diarrhea. : Reports no burning during urination. States bleeding noted on underwear but states not too sure if its from urine or menstruation. States menstruation is irregular. EENT: No signs and/or symptoms were reported regarding the EENT system. Derm: Skin is pink, warm \T\ dry. Musculoskeletal: Capillary refill < 3 seconds, Range of motion: intact in all extremities. 19:10 Reassessment: Patient appears in no apparent distress at this time. Patient and/or jb4 family updated on plan of care and expected duration. Pain level reassessed. Patient is alert, oriented x 3, equal unlabored respirations, skin warm/dry/pink. 20:15 Reassessment: Patient appears in no apparent distress at this time. Patient and/or jb4 family updated on plan of care and expected duration. Pain level reassessed. Patient is alert, oriented x 3, equal unlabored respirations, skin warm/dry/pink. Patient states feeling better. Vital Signs: 18:16 Pulse 91; Resp 18; Temp 98.3; Pulse Ox 100% ; Weight 73.48 kg; Height 4 ft. 10 in. ll1 (147.32 cm); Pain 6/10; 19:15 BP 118 / 72; Pulse 88; Resp 16; Pulse Ox 100% on R/A; jb4 20:25 BP 109 / 68; Pulse 85; Resp 16; Pulse Ox 100% on R/A; jb4 18:16 Body Mass Index 33.86 (73.48 kg, 147.32 cm) 1 ED Course: 17:49 Patient arrived in ED. bp1 18:18 Triage completed. 1 18:19 Arm band placed on Patient placed in an exam room, on a stretcher. [facility] 18:27 Raymond Calloway PA is PHCP. [facility] 18:27 Patel Mckenna MD is Attending Physician. [facility] 18:43 Wagner Hameed, RN is Primary Nurse. em 18:55 Patient has correct armband on for positive identification. Bed in low position. Call vg1 light in reach. Adult w/ patient. Pulse ox on. NIBP on. Door closed. 19:14 Report given to Nahid CONDE. 19:25 Initial lab(s) drawn, by ia, sent to lab. Inserted saline lock: 20 gauge in right jb4 forearm, using aseptic technique. Blood collected. 19:38 Lipase Sent. jb4 19:38 Hepatic Function Sent. jb4 19:38 CBC with Diff Sent. jb4 19:38 Basic Metabolic Panel Sent. jb4 19:38 Urine Culture Sent. jb4 19:42 CT Abd/Pelvis - IV Contrast Only In Process Unspecified. EDCO 19:53 Primary Nurse role handed off by Wagner Hameed, RN 2 20:13 Neel Leos, RN is Primary Nurse. [facility] 20:59 No provider procedures requiring assistance completed. IV discontinued, intact, bleeding controlled, No redness/swelling at site. Administered Medications: 19:28 Drug: Zofran (Ondansetron) 4 mg Route: IVP; Site: right forearm; [facility] 20:59 Follow up: Response: No adverse reaction; Nausea is decreased 19:30 Drug: morphine 4 mg Route: IVP; Site: right forearm; [facility] 21:00 Follow up: Response: No adverse reaction; Pain is decreased; RASS: Alert and Calm (0) Outcome: 20:43 Discharge ordered by MD. [facility] 20:59 Discharged to home ambulatory, with family. 20:59 Condition: stable 20:59 Discharge instructions given to patient, Instructed on discharge instructions, follow up and referral plans. no drinking with medication, no driving heavy equipment, medication usage, POC Demonstrated understanding of instructions, follow-up care, medications, POC Prescriptions given X 1. 21:00 Patient left the ED. Signatures: Dispatcher [employer] Carlie Alarcon, RN RN Raymond Calloway PA PA Wagner Hernadez, RN ELTON Neel Leos, RN RN 4 Ara Arrington Thor Campbell 2 Jeanette Cook RN RN 1 Leticia Gupta RN RN ll1 Davida Duggan bp1
[2019-12-17 21:54] VITALS: TEMP 98.3; O2SAT 100
[2019-12-17 21:57] VITALS: BP 109/68
== END 2019-12-17 21:00 | disposition home or self-care (01) ==
LOC: ER 17:46
DX: R10.9 Unspecified abdominal pain (principal)
CPT/HCPCS: 36415; 74177; 80048; 80076; 81003; 81015; 81025; 82565; 83690; 85025; 87086; 87088; 96374; 96375; 99284; J2405; Q9967

== ENCOUNTER 2021-01-12 17:48 | Emergency (ER) | payer SELFPAY ==
--- OUTSIDE RECORDS SUMMARY | 2021-01-12 17:52 | XMS REPORT | Continuity of Care Document ---
:2000 Author Organization [facility] t Address [address] [place] [address] Care Team Providers Name Role Phone Pcp, Does Not Have A Primary Care Physician Antoni PAYNE Attending Clinician Unavailable Antoni Payne NP Attending Clinician RACHEL Attending Clinician Unavailable SALMA Attending Clinician [...] Resolve [facility] PCOS PCOS d [facility] [place] [facility] Anxiety Anxiety Problem Active [facility] [place] [facility] Major Major Problem Active Univers depression depression [facility] [place] [facility] BMI BMI Problem Active Univers 25.0-25.9, 25.0-25.9, it y of adult adult [place] [facility] Allergies, Adverse Reactions, Alerts Allergy Allergy Status Severity Reaction(s) Onset Inactive Treating Comm ents Source Name Type Date Date Clinician NO KNOWN Drug Active Univers ALLERGIE Class ity of S [facility] Family History Family Member Diagnosis Comments Start Date Stop Date Source Sibling Family history of Univers [facility] depression Physicians Mother Family history of Univers [facility] depression Physicians Father Family history of Univers [facility] depression Physicians Social History Social Habit Start Date Stop Date Quantity Comments Source Exposure to Not sure [facility] SARS-CoV-2 (event) Medica l Branch Sex Assigned At [birth year] [facility] 00:00:00 00:00:00 Medical Branch Smoking Status Start Date Stop Date Source Unknown if ever smoked [facility] Never smoker [facility] [place] Physicians Medications Ordered Filled Start Stop Current Ordering Indication Dosage Frequency Signature Comments Components Source Medication Medication Date Date Medication? Clinician (SIG) Name Name maalox-lido 2020-02- No 20mL 20 mL, Uni vers obdulio 2% 03-04 Oral, ity of viscous 1:1 03:15[place] 02[place] dose, On Medic al (COMPOUNDED Fri Branch ) 01/01/21 at 2215, Routine dicyclomine 2020-02- No 20mg 20 mg, Uni vers (BENTYL) 03-04 Oral, ity of tablet 20 03:15: 02:36 [place]CE[place] mg [place] :00 dose, On Medical Fri Branch 01/01/21 at 2215, RAD dicyclomine 2020-02 Yes [id number] 20mg Take 1 Univers 20 mg 1-05 tablet by ity of tablet 00:00: mouth 4 00 (four) Medical times Branch daily as needed for Abdominal pain. sucralfate 2020-02 Yes [id number] 1g Take 1 U nivers 1 gram 1-05 tablet by ity of tablet 00:00: mouth [place] 00 before Medical meals and Branch at bedtime. Vistaril 50 Vistaril 50 2017-02 Yes MINGO TAKE 1 Univers MG Oral MG Oral 1-12 SALMA CAPSULE AT ity of Capsule Capsule 00:00: N.P. BEDTIME. [place] as 00 Physici ans Lexapro 5 Lexapro 5 2017-02 Yes MINGO 1 QD TAKE 1 Univers MG Oral MG Oral 1-12 SALMA TABLET ity of Tablet Tablet 00:00: N.P. DAILY. [place] 00 Physici ans metFORMIN metFORMIN Yes QD TAKE 1 Uni vers HCl - 500 HCl - 500 TABLET ity of MG Oral MG Oral DAILY [place] Tablet Tablet DIRECTED. Physic i ans Lexapro 10 Lexapro 10 Yes Uni vers MG Oral MG Oral ity of Tablet Tablet [place] [facility] Vital Signs Vital Name Observation Time Observation Value Comments Source Systolic blood 2021-01-02 138 mm[Hg] [facility] pressure 04:12:00 [facility] Diastolic blood 2021-01-02 85 mm[Hg] University o f pressure 04:12:00 [facility] Heart rate 2021-01-02 92 /min [facility] 04:12:00 [facility] Respiratory rate 2021-01-02 18 /min [facility] 04:12:00 [facility] Oxygen saturation 2021-01-02 100 /min [facility] Arterial blood 04:12:00 [facility] [place] by Pulse oximetry [place] Body temperature 2021-01-02 37 Blanca [facility] :35:00 [facility] Body height 2021-01-02 147.3 cm [facility] :35:00 [facility] Body weight 2021-01-02 78.926 kg [facility] :35:00 [facility] BMI 2021-01-02 36.37 kg/m2 [facility] :35:00 [facility] BP Systolic 2018-01-08 122 mm[Hg] Location: Critical access hospital :35:00 Position: [place] [facility] Sitting BP Diastolic 2018-01-08 78 mm[Hg] Location: Critical access hospital :35:00 Position: [place] [facility] Sitting Height 2018-01-08 62 [in_us] University of :35:00 [place] [facility] Weight 2018-01-08 138.6 [lb_av] University of :35: [place] [facility] Body Mass Index 2018-01-08 25.35 kg/m2 University o f Calculated :35:00 [place] [facility] Temperature 2018-01-08 97.6 [degF] University of :35: [place] [facility] Heart Rate 2018-01-08 65 /min University :35:00 [place] [facility] Respiration Rate 2018-01-08 16 /min [facility] :35:00 [place] [facility] O2 SAT 2018-01-08 100 % University of 11:35:00 [place] [facility] Procedures Procedure Date / Time Performed Performing Clinician Joselito e POCT TEST 2021-01-02 02:29:00 Louisa Payne [facility] LIPASE 2021-01-02 02:21:00 Louisa Payne [facility] COMP. METABOLIC PANEL 2021-01-02 02:21:00 Louisa Payne [facility] ([id number]) [facility] CBC WITH DIFF 2021-01-02 02:21:00 Louisa Payne [facility] COVID-19 (ID NOW 2021-01-02 02:21:00 Louisa Payne [facility] RAPID TESTING) [facility] NOTICE OF PRIVACY 2021-01-02 01:24:19 Doctor Unassigned, No Univ [facility] PRACTICES Name [facility] CONSENT/REFUSAL FOR 2021-01-02 01:23:58 [facility] TREATMENT [QLH] CBC (INCLUDES 2018-01-08 00:00:00 [facility] DIFF/PLT) Physicians [QLH] CMP W/EGFR 2018-01-08 00:00:00 [facility] Physicians History of Lung [facility] surgery Physicians Encounters Start End Encounter Admission Attending Care Care Encounter Source Date/Time Date/Time Type Type Clinicians Facility Department ID 2021-01-01 2021-01-01 Emergency X [facility] ERT [id number] Univers 20:39:00 23:14:00 LOUISA ar[facility]old [facility] 2021-01-01 2021-01-01 Emergency [facility] [id number] Univers 20:39:00 23:14:00 Louisa BARRAZA [id number] ity [facility] [id number] [facility] [id number] [place] [address] Branch 2019-11-28 2019-12-02 Outpatient HCPCDOCS HCPCDOCS [id number] 13:40:00 13:02:00 91 2018-02-08 2018-02-08 Appointmen ESME RAMOS [facility] [id number] Univers 12:00:00 12:00:00 t; GISELLE RAMOS, SPECIAL ORDER JEWELER it y of ESME [place], [place] SPECIAL ORDER JEWELER Physici ans 2018-01-23 2018-01-23 AppointREINA Ramachandran [facility] [id number] Univers 09:00:00 09:00:00 t; DANETTE AGUILA itgabriel of [place], [place] DANETTE AGUILA Physi ci ans 2018-01-08 2018-01-08 AppointREINA [facility] [id number] Univers 11:30:00 11:30:00 t; DANETTE AGUILA Health and itgabriel of [facility] DANETTE AGUILA Center - Phys [facility] Results Test Description Test Time Test Comments Results Result Comments Source COMP. METABOLIC PANEL (64014) 2021-01-02 02:42:21 Test Item Value Reference Range Interpretation Comme nts NA (test code = 1115924997) 138 mmol/L 135-145 K (test code = 1247278784) 4.0 mmol/L 3.5-5.0 CL (test code = 8199217018) 100 mmol/L 98-108 CO2 TOTAL (test code = 29 mmol/L 23-31 2004850937) AGAP (test code = 7927653217) 2-16 BUN (test code = 6361277104) 14 mg/dL 7-23 GLUCOSE (test code = 0232105482) 82 mg/dL 70-110 CREATININE (test code = 0.77 mg/dL 0.50-1.04 0338759217) TOTAL BILI (test code = 0.4 mg/dL 0.1-1.9 8651254210) CALCIUM (test code = 1578025664) 9.7 mg/dL 8.6-10.6 T PROTEIN (test code = 7.4 g/dL 6.3-8.2 0887395076) ALBUMIN (test code = 2252340511) 4.4 g/dL 3.5-5.0 ALK PHOS (test code = 1941556945) 116 U/L 34-122 ALTv (test code = 1742-6) 17 U/L 5-35 AST(SGOT) (test code = 23 U/L 13-40 9274322181) eGFR (test code = 3258802066) mL/min/1.73m2 CHRISTINE (test code = CHRISTINE) Association of Glomerular Filtration Rate (GFR) and Staging of Kidney Disease* + +--------- + ----+| GFR (mL/min/1.73 m2) ?| With Kidney Damage ?| ?Without Kidney Damage+ +--- + +| ?>90 ?| ?Stage one ?| ? Normal ?+ +-------- + -----+| ?60-89 ?| ?Stage two ?| ? Decreased GFR ? + +--------- + ----+| ?30-59 ?| ?Stage three ?| ? Stage three ? + +--------- + ----+| ?15-29 ?| ?Stage four ? | ? Stage four ?+ +-------- + -----+| ?<15 (or dialysis) ? ?| ?Stage five ? | ? Stage five ?+ +-------- + -----+ *Each stage assumes the associated GFR level has been in effect for at least three months. ?Stages 1 to 5, with or without kidney disease, indicate chronic kidney disease. Notes: Determination of stages one and two (with eGFR >59mL/min/1.73 m2) requires estimation of kidney damage for at least three months as defined by structural or functional abnormalities of the kidney, manifested by either:Pathological abnormalities or Markers of kidney damage (including abnormalities in the composition of the blood or urine or abnormalities in imaging tests). [facility]:41:41 Test Item Value Reference Range Interpretation Comments LIPASE (test code = 8656420354) 28 U/L 0-220 Lab Interpretation (test code = Normal 26068-1) [facility] [id number] 02:30:21 Test Item Value Reference Range Interpretation Comments WBC (test code = See_Comment [Automated 2090-2) message] The sy stem which generated this result transmitted reference range : 4.30 - 11.10 10*3/?L. The reference range was not used to interpret this result as normal/abnormal . RBC (test code = See_Comment [Automated 915-4) message] The sy stem which generated this result transmitted reference range : 3.93 - 5.25 10*6/?L. The reference range was not used to interpret this result as normal/abnormal . HGB (test code = 11.3 g/dL 11.6-15.0 L 718-7) HCT (test code = 36.4 % 35.7-45.2 4544-3) MCV (test code = 84.7 fL 80.6-95.5 787-2) MCH (test code = 26.3 pg 25.9-32.8 785-6) MCHC (test code = 31.0 g/dL 31.6-35.1 L 786-4) RDW-SD (test code = 44.4 fL 39.0-49.9 76926-1) RDW-CV (test code = 14.5 % 12.0-15.5 788-0) PLT (test code = See_Comment [Automated 777-3) message] The sy stem which generated this result transmitted reference range : 166 - 358 10*3/ ?L. The reference r maría was not used to interpret this result as normal/abnormal . MPV (test code = 9.0 fL 9.5-12.9 L 59519-5) NRBC/100 WBC (test See_Comment [Automat ed code = 4489767233) message] The system which generated this result transmitted reference range : 0.0 - 10.0 /100 WBCs. The refer ence range was not u sed to interpret th is result as normal/abnormal . NRBC x10^3 (test code <0.01 See_Comment [Auto mated = 6340482390) message] The s ystem which generated this result transmitted reference range : 10*3/?L. The reference range was not used to interpret this result as normal/abnormal . GRAN MAT (NEUT) % 64.8 % (test code = 770-8) IMM GRAN % (test code 0.30 % = 1967583124) LYMPH % (test code = 27.7 % 736-9) MONO % (test code = 6.2 % 5905-5) EOS % (test code = 0.6 % 713-8) BASO % (test code = 0.4 % 706-2) GRAN MAT x10^3(ANC) 6.27 10*3/uL 1.88-7.09 (test code = 2430553812) IMM GRAN x10^3 (test 0.03 10*3/uL 0.00-0.06 code = 1668320510) LYMPH x10^3 (test code 2.68 10*3/uL 1.32-3.29 = 731-0) MONO x10^3 (test code 0.60 10*3/uL 0.33-0.92 = 742-7) EOS x10^3 (test code = 0.06 10*3/uL 0.03-0.39 711-2) BASO x10^3 (test code 0.04 10*3/uL 0.01-0.07 = 704-7) Lab Interpretation Abnormal (test code = 49033-3) [facility] [id number] 02:29:00 Test Item Value Reference Range Interpretation Comments POCT PREG (test code = 1605) negative On board controls acceptable with present C Line (test code = 3574) POCT PREG LOT # (test code = 3575) [id number] POCT PREG TEST DATE (test code = 3576) Lab Interpretation (test code = Normal 98466-8) [facility]] CMP [id number] 10:11:00 Test Item Value Reference Range Interpretation Comments GLUCOSE; Normal 84 mg/dl 65-99 N Fasting refe rence (test code = interval 1547-9) UREA NITROGEN (BUN) 8 mg/dl 7-20 N (test code = UREA NITROGEN (BUN)) CREATININE (test 0.71 mg/dl 0.50-1.00 N code = CREATININE) eGFR NON- 124 {ML/MIN/1.7} > OR = 60 N MONTSERRATIAN (test code = eGFR NON-) eGFR 144 {ML/MIN/1.7} > OR = 60 N MONTSERRATIAN (test code = eGFR ) BUN/CREATININE NOT APPLICABLE 6-22 RATIO (test code = BUN/CREATININE RATIO) SODIUM (test code = 141 mmol/L 135-146 N SODIUM) POTASSIUM (test 4.4 mmol/L 3.8-5.1 N code = POTASSIUM) CHLORIDE (test code 105 mmol/L 98-110 N = CHLORIDE) CARBON DIOXIDE 30 mmol/L 20-32 N (test code = CARBON DIOXIDE) CALCIUM (test code 9.1 mg/dl 8.9-10.4 N = CALCIUM) PROTEIN, TOTAL 6.6 g/dl 6.3-8.2 N (test code = PROTEIN, TOTAL) ALBUMIN (test code 3.8 g/dl 3.6-5.1 N = ALBUMIN) GLOBULIN (test code 2.8 {G/DL CALC} 2.0-3.8 N = GLOBULIN) ALBUMIN/GLOBULIN 1.4 {CALC} 1.0-2.5 N RATIO (test code = ALBUMIN/GLOBULIN RATIO) BILIRUBIN, TOTAL; 0.3 mg/dl 0.2-1.1 N Normal (test code = 89625-9) ALKALINE PHSPHATASE 110 u/l 47-176 N (test code = ALKALINE PHSPHATASE) AST; Normal (test 12 u/l 12-32 N code = 1916-6) ALT; Normal (test 10 u/l 5-32 N code = 1742-6) [facility]] CBC (INCLUDES DIFF/PLT)2018-01-10 10:11:00 Test Item Value Reference Range Interpretation Comments WHITE BLOOD CELL COUNT 7.1 {Thousand/u} 4.5-13.0 N (test code = WHITE BLOOD CELL COUNT) RED BLOOD CELL COUNT (test 4.25 {Million/uL} 3.80-5.10 N code = RED BLOOD CELL COUNT) HEMAGLOBIN; Normal (test 12.2 g/dl 11.5-15.3 N code = 22763-2) HEMATOCRIT; Normal (test 37.4 % 34.0-46.0 N code = 4544-3) MCV; Normal (test code = 88.0 fL 78.0-98.0 N 787-2) MCHC; Normal (test code = 32.6 g/dl 31.0-36.0 N 32540-1) RDW; Normal (test code = 12.9 % 11.0-15.0 N 788-0) PLATELET COUNT; Normal 251 {Thousand/u} 140-400 N (test code = 777-3) MPV; Normal (test code = 10.9 fL 7.5-12.5 N 97023-8) ABSOLUTE NEUTROPHILS (test 4367 {cells/uL} 2584-9906 N code = ABSOLUTE NEUTROPHILS) ABSOLUTE LYMPHOCYTES (test 2066 {cells/uL} 8232-5885 N code = ABSOLUTE LYMPHOCYTES) ABSOLUTE MONOCYTES (test 561 {cells/uL} 200-900 N code = ABSOLUTE MONOCYTES) ABSOLUTE EOSINOPHILS (test 78 {cells/uL} 15-500 N code = ABSOLUTE EOSINOPHILS) ABSOLUTE BASOPHILS (test 28 {cells/uL} 0-200 N code = ABSOLUTE BASOPHILS) NEUTROPHILS (test code = 61.5 % N NEUTROPHILS) LYMPHOCYTES (test code = 29.1 % N LYMPHOCYTES) MONOCYTES; Normal (test 7.9 % N code = 94176-0) EOSINOPHILS; Normal (test 1.1 % N code = 99414-5) BASOPHILS; Normal (test 0.4 % N code = 89737-8) [facility]"
[2021-01-12] MEDS ORDERED: METOCLOPRAMIDE 10 MG/2mL INJ ONE (20:27)
[2021-01-12] MEDS ORDERED: NA CHLORIDE 0.9% 1,000 ML ONE ×3 (20:28→23:41)
[2021-01-12] MEDS ORDERED: FAMOTIDINE 20 MG/2 ML VIAL IV ONE (20:28)
[2021-01-12] MEDS ORDERED: DIPHENHYDRAMINE 50 MG/ML VIAL ONE (20:41)
[2021-01-12 21:04] LABS: Protime INR 1.14
--- NOTE | 2021-01-12 21:20 | RAD REPORT ---
EXAM DESCRIPTION: RAD - Chest Single View - 01/12/2021 9:03 pm CLINICAL HISTORY: sob, vomiting COMPARISON: No comparisons FINDINGS: Lines: None. Lungs: No evidence of edema or pneumonia. Pleural: No significant pleural effusions or pneumothorax. Cardiac: The heart size is within normal limits. Bones: No acute fractures. Other: IMPRESSION: No acute cardiopulmonary disease.
[2021-01-12 21:33] LABS: Absolute Lymphocytes (CBC) 2.5 K/uL (0.7-4.9); Basophils % 0.3 % (0-1.3); Hematocrit 35.7 % (36.0-45.0); Lymphocytes % 24.7 % (15.3-44.8); MPV 7.8 fL (7.6-11.3); RBC Red Blood Cell Count 4.38 M/uL (3.86-4.86)
[2021-01-12 21:59] LABS: ALT/SGPT 22 U/L (12-78); AST/SGOT 19 U/L (15-37); Albumin 3.7 g/dL (3.4-5.0); Alkaline Phosphatase 116 U/L (45-117); BUN Blood Urea Nitrogen 8 mg/dL (7-18); Bicarbonate 28 mmol/L (21-32); Bilirubin Direct < 0.1 mg/dL (0-0.2); Bilirubin Total 0.3 mg/dL (0.2-1.0); Glucose Level 81 mg/dL (74-106); Lipase 57 U/L (73-393); Magnesium 2.3 mg/dL (1.8-2.4); NT PRO-BNP 7 pg/mL (<125); Potassium 3.5 mmol/L (3.5-5.1); Protein, Total 7.7 g/dL (6.4-8.2); Sodium Level 142 mmol/L (136-145); Troponin (Emerg Dept Use Only) < 0.02 ng/mL (0.0-0.045)
[2021-01-12 22:12] LABS: Urine Blood Negative (Negative); Urine Glucose Negative (Negative); Urine Protein Negative (Negative); Urine Specific Gravity 1.015 (1.005-1.030)
[2021-01-12 23:38] LABS: Urine Specific Gravity/Preg 1.015 (1.005-1.030)
--- NOTE | 2021-01-13 01:10 | EDPHYS ---
Physician Documentation [facility] Name: Violet Sams Age: 20 yrs Sex: Female : 2000 Arrival Date: 01/12/2021 Time: 17:53 Bed 14 Private MD: RUBEN Physician Mustapha Ho HPI: 01/12 19:27 This 20 yrs old Female presents to ER via Ambulatory with complaints of jmm Abdominal Pain, Nausea, Dehydration. 19:27 The patient presents with abdominal pain. Onset: The symptoms/episode began/occurred jmm gradually, 3 week(s) ago. The symptoms do not radiate. Associated signs and symptoms: Pertinent positives: nausea and vomiting, vomiting. The symptoms are described as achy. Modifying factors: The symptoms are alleviated by nothing, the symptoms are aggravated by nothing. The patient has experienced similar episodes in the past. This is a 20-year-old female with history of depression the presents emerged department with ongoing vomiting and abdominal pain which is been ongoing for the past 3 weeks. Patient has been to the ER multiple times.. 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 - Social history:: Smoking status: Patient denies any tobacco usage or history of. ROS: 19:27 Constitutional: Negative for fever, chills, and weight loss, Cardiovascular: Negative jmm for chest pain, palpitations, and edema. 19:27 Respiratory: Positive for shortness of breath. 19:27 Abdomen/GI: Positive for abdominal pain, nausea and vomiting. 19:27 All other systems are negative. Exam: 19:27 Constitutional: This is a well developed, well nourished patient who is awake, alert, jmm and in no acute distress. Head/Face: atraumatic. Eyes: EOMI, no conjunctival erythema appreciated ENT: Moist Mucus Membranes Neck: Trachea midline, Supple Chest/axilla: Normal chest wall appearance and motion. 19:27 Respiratory: Normal respirations, no respiratory distress appreciated Abdomen/GI: Non distended, soft Back: Normal ROM Skin: General appearance color normal MS/ Extremity: Moves all extremities, no obvious deformities appreciated, no edema noted to the lower extremities Neuro: Awake and alert, normal gait Psych: Behavior is normal, Mood is normal, Patient is cooperative and pleasant 19:27 Cardiovascular: Rate: tachycardic. Vital Signs: 17:58 BP 153 / 103; Pulse 105; Resp 17; Temp 98.4; Pulse Ox 100% ; Weight 76.2 kg; Height 4 ll1 ft. 9 in. (144.78 cm); Pain 6/10; 20:36 BP 154 / 116; Pulse 154; Resp 28; Pulse Ox 96% on R/A; Pain 5/10; kc4 20:53 BP 144 / 90; Pulse 100; Resp 20; Temp 98.7; Pulse Ox 100% on R/A; Pain 5/10; kc4 21:30 BP 136 / 76; Pulse 98; Resp 18; Pulse Ox 100% on R/A; Pain 0/10; 4 22:30 BP 124 / 84; Pulse 88; Resp 18; Pulse Ox 99% on R/A; Pain 0/10; 4 23:55 BP 133 / 75; Pulse 82; Resp 18; Pulse Ox 98% on R/A; Pain 0/10; [facility] 01/13 01:24 BP 116 / 77; Pulse 88; Resp 18; Temp 98.6(O); Pulse Ox 98% on R/A; Pain 0/10; [facility] 01/12 17:58 Body Mass Index 36.35 (76.20 kg, 144.78 cm) [facility] 01/12 20:36 Pt mother notified RN that pt was having trouble breathing. when the RN entered the [facility] room pt was diaphoretic and heart rate was elevated in the 130's-150's. GENET Calloway was was called to bed side. pt was instructed to practice valsalva maneuvers. pt was placed on 2L O2 for comfort, EKG was obtained, rhytm ST. and fluids started.Pt heart rate returned to the low 100s. MDM: 19:27 Patient medically screened. [facility] 01/13 01:08 Data reviewed: vital signs, nurses notes. Counseling: I had a detailed discussion with [facility] the patient and/or guardian regarding: the historical points, exam findings, and any diagnostic results supporting the discharge/admit diagnosis, lab results, radiology results, the need for outpatient follow up, to return to the emergency department if symptoms worsen or persist or if there are any questions or concerns that arise at home. ED course: Patient states feeling much better after IV fluids and Reglan. Advised to follow-up with a maintainer operator. Otherwise given strict return precautions. Patient understood and agrees plan of care.. 01/12 20:26 Order name: Basic Metabolic Panel; Complete Time: 22:00 [facility] 01/12 20:26 Order name: CBC with Diff; Complete Time: 21:54 [facility] 01/12 20:26 Order name: LFT's; Complete Time: 22:00 [facility] 01/12 20:26 Order name: Magnesium; Complete Time: 22:00 [facility] 01/12 20:26 Order name: NT PRO-BNP; Complete Time: 22:00 [facility] 01/12 20:26 Order name: PT-INR; Complete Time: 21:54 [facility] 01/12 20:26 Order name: Troponin (emerg Dept Use Only); Complete Time: 22:00 [facility] 01/12 20:26 Order name: XRAY Chest (1 view); Complete Time: 21:23 [facility] 01/12 20:26 Order name: Lipase; Complete Time: 22:00 [facility] 01/12 22:01 Order name: CT Chest For PE Angio [facility] 01/12 22:01 Order name: CT Abd/Pelvis - IV Contrast Only [facility] 01/12 22:01 Order name: US Abdomen Limited [facility] 01/12 22:12 Order name: Urine Dipstick-Ancillary; Complete Time: 22:12 [facility] 01/12 22:13 Order name: Urine --Ancillary (enter results); Complete Time: 23:42 [facility] 01/12 20:26 Order name: EKG; Complete Time: 20:27 [facility] 01/12 20:26 Order name: Cardiac monitoring; Complete Time: 20:32 [facility] 01/12 20:26 Order name: EKG - Nurse/Tech [facility] 01/12 20:26 Order name: IV Saline Lock [facility] 01/12 20:26 Order name: Labs collected and sent; Complete Time: 20:32 [facility] 01/12 20:26 Order name: O2 Per Protocol [facility] 01/12 20:26 Order name: O2 Sat Monitoring [facility] 01/12 21:54 Order name: Urine Dipstick-Ancillary (obtain specimen); Complete Time: 22:12 [facility] 01/12 21:54 Order name: Urine Test (obtain specimen); Complete Time: 22:12 [facility] Administered Medications: 01/12 20:38 Drug: Reglan (metoCLOPramide) 20 mg Route: IVP; Site: right forearm; kc4 22:13 Follow up: Response: No adverse reaction kc4 20:38 Drug: Pepcid (famotidine) 20 mg Route: IVP; Site: right forearm; kc4 22:13 Follow up: Response: No adverse reaction kc4 20:39 Drug: NS 0.9% 1000 ml Route: IV; Rate: 1 bolus; Site: right forearm; kc4 22:13 Follow up: Response: No adverse reaction; IV Status: Completed infusion kc4 20:42 Drug: diphenhydrAMINE 12.5 mg Route: IVP; Site: right forearm; kc4 22:13 Follow up: Response: No adverse reaction kc4 22:19 Drug: NS 0.9% 1000 ml Route: IV; Rate: 1 bolus; Site: right antecubital; kc4 23:55 Follow up: Response: No adverse reaction; IV Status: Completed infusion kc4 23:54 Drug: NS 0.9% 1000 ml Route: IV; Rate: 1 bolus; Site: right forearm; kc4 01/13 01:25 Follow up: IV Status: Completed infusion kc4 Disposition: 02:54 Co-signature as Attending Physician, Mustapha Ho MD I agree with the assessment and stephie plan of care. Disposition Summary: 01/13/21 01:09 Discharge Ordered Location: Home [facility] Condition: Stable [facility] Diagnosis - Vomiting [facility] Followup: [facility] - With: Private Physician - When: 2 - 3 days - Reason: Recheck today's complaints, Continuance of care, Re-evaluation by your physician Discharge Instructions: - Discharge Summary Sheet [facility] - Vomiting, Adult [facility] Forms: - Medication Reconciliation Form [facility] - Thank You Letter [facility] - Antibiotic Education [facility] - Prescription Opioid Use [facility] Prescriptions: - Pepcid 20 mg Oral Tablet - take 1 tablet by ORAL route every 12 hours for 10 days; 20 tablet; Refills: 0, [facility] Product Selection Permitted - Reglan 10 mg Oral Tablet - take 1 tablet by ORAL route every 6 hours . take 30 minutes before meals and at [facility] bedtime; 100 tablet; Refills: 0, Product Selection Permitted Signatures: Dispatcher [employer] EDMustapha Blair MD MD cha Mickail, Joel, PA PA jmm Lewis, Lynsay, RN RN ll1 Lorie Baca [facility]
--- NOTE | 2021-01-13 01:10 | ER ---
Nurse's Notes [facility] Name: Violet Sams Age: 20 yrs Sex: Female : 2000 Arrival Date: 01/12/2021 Time: 17:53 Bed 14 Private MD: Diagnosis: Vomiting Presentation: 01/12 17:58 Chief complaint: Patient states: Abd pain with nausea for 3 weeks. Went to [facility] last ll1 week, Bentyl and sucralfate not helping. Was diagnosed with peptic ulcers, H. pylori was negative,. No fever. Feels dehydrated now. Tremors for 1 week. Coronavirus screen: Vaccine status: Patient reports being unvaccinated. Client denies travel out of the [place] in the last 14 days. At this time, the client does not indicate any symptoms associated with coronavirus-19. Ebola Screen: Patient denies travel to an Ebola-affected area in the 21 days before illness onset. Initial Sepsis Screen: Does the patient meet any 2 criteria? No. Patient's initial sepsis screen is negative. Does the patient have a suspected source of infection? Yes: Acute abdominal pain. Risk Assessment: Do you want to hurt yourself or someone else? Patient reports no desire to harm self or others. Onset of symptoms was December 21, 2020. 17:58 Method Of Arrival: Ambulatory ll1 17:58 Acuity: LAURA 3 ll1 DATA SUPPORT SPECIALIST: 21:00 U preg negative kc4 Historical: - Allergies: 18:00 No Known Allergies; ll1 - Home Meds: 23:57 Lexapro 20 mg Oral tab 1 tab once daily [Active]; phentermine Oral once daily [Active]; kc4 Topamax Oral [Active]; - PMHx: 18:00 depression; ll1 - PSHx: 18:00 None; ll1 - Immunization history:: Client reports having NOT received the Covid vaccine. - Social history:: Smoking status: Patient denies any tobacco usage or history of. Screenin:19 Abuse screen: Denies threats or abuse. Denies injuries from another. Nutritional kc4 screening: No deficits noted. On no prescribed diet Difficulty chewing/swallowing? Yes Has had N/V for 3 or more days. Tuberculosis screening: No symptoms or risk factors identified. Never had TB. Possible symptoms: None Risk factors: None. Fall Risk None identified. Secondary diagnosis (15 points) IV access (20 points). Ambulatory Aid- None/Bed Rest/Nurse Assist (0 pts). Gait- Normal/Bed Rest/Wheelchair (0 pts) Mental Status- Oriented to own ability (0 pts). Total Wells Fall Scale indicates No Risk (0-24 pts). Assessment: 20:20 General: Appears in no apparent distress. obese, Behavior is calm, cooperative, kc4 appropriate for age, Reports fatigue for 1-2 days, Denies fever, feeling ill, chills. Pain: Complains of pain in abdomen Pain radiates to back Pain currently is 5 out of 10 on a pain scale. at worst was 9 out of 10 on a pain scale. level that patient reports is acceptable is 2 out of 10 on a pain scale. Quality of pain is described as burning, aching, crampy, radiating, shooting, Pain began 2-3 days ago. Is intermittent, Alleviated by Aggravated by eating, drinking, increased activity. Neuro: No deficits noted. Cardiovascular: Reports None Denies chest pain, diaphoresis, fatigue, lightheadedness, palpitations, shortness of breath, syncope, Heart tones S1 S2 present Capillary refill < 3 seconds JVD is absent Patient's skin is warm and dry. Pulses are all present. Rhythm is regular Chest pain is denied. 20:20 Respiratory: No deficits noted. GI: Bowel sounds present X 4 quads. Abd is soft and non kc4 tender X 4 quads. Reports upper abdominal pain, cramping, epigastric pain, nausea, Patient currently denies. GI: Abdomen is round : No deficits noted. No signs and/or symptoms were reported regarding the genitourinary system. EENT: No deficits noted. No signs and/or symptoms were reported regarding the EENT system. Derm: No deficits noted. No signs and/or symptoms reported regarding the dermatologic system. Musculoskeletal: No deficits noted. No signs and/or symptoms reported regarding the musculoskeletal system. Vital Signs: 17:58 BP 153 / 103; Pulse 105; Resp 17; Temp 98.4; Pulse Ox 100% ; Weight 76.2 kg; Height 4 ll1 ft. 9 in. (144.78 cm); Pain 6/10; 20:36 BP 154 / 116; Pulse 154; Resp 28; Pulse Ox 96% on R/A; Pain 5/10; kc4 20:53 BP 144 / 90; Pulse 100; Resp 20; Temp 98.7; Pulse Ox 100% on R/A; Pain 5/10; kc4 21:30 BP 136 / 76; Pulse 98; Resp 18; Pulse Ox 100% on R/A; Pain 0/10; kc4 22:30 BP 124 / 84; Pulse 88; Resp 18; Pulse Ox 99% on R/A; Pain 0/10; kc4 23:55 BP 133 / 75; Pulse 82; Resp 18; Pulse Ox 98% on R/A; Pain 0/10; kc4 01/13 01:24 BP 116 / 77; Pulse 88; Resp 18; Temp 98.6(O); Pulse Ox 98% on R/A; Pain 0/10; kc4 01/12 17:58 Body Mass Index 36.35 (76.20 kg, 144.78 cm) [facility] 01/12 20:36 Pt mother notified RN that pt was having trouble breathing. when the RN entered the [facility] room pt was diaphoretic and heart rate was elevated in the 130's-150's. GENET Calloway was was called to bed side. pt was instructed to practice valsalva maneuvers. pt was placed on 2L O2 for comfort, EKG was obtained, rhytm ST. and fluids started.Pt heart rate returned to the low 100s. ED Course: 17:53 Patient arrived in ED. as 17:56 Raymond Calloway PA is PHCP. [facility] 17:56 Nestor Montero MD is Attending Physician. [facility] 18:00 Triage completed. ll1 18:02 Arm band placed on. ll1 19:27 Attending Physician role handed off by Nestor Montero MD stephie 19:27 Mustapha Ho MD is Attending Physician. stephie 19:38 Jeanette Cook, RN is Primary Nurse. 1 19:44 Lorie Baca is Primary Nurse. kc4 20:30 Inserted saline lock: 20 gauge in right forearm, using aseptic technique. Blood 4 collected. 21:03 XRAY Chest (1 view) In Process Unspecified. EDMS 22:14 Urine --Ancillary (enter results) Sent. kc4 22:31 CT Chest For PE Angio In Process Unspecified. EDMS 22:31 CT Abd/Pelvis - IV Contrast Only In Process Unspecified. EDMS 22:37 US Abdomen Limited In Process Unspecified. EDMS 23:57 No provider procedures requiring assistance completed. kc4 23:58 Patient has correct armband on for positive identification. Placed in gown. Bed in low kc4 position. Call light in reach. Side rails up X 1. Adult w/ patient. 01/13 01:25 IV discontinued, intact, bleeding controlled, No redness/swelling at site. Pressure kc4 dressing applied. Administered Medications: 01/12 20:38 Drug: Reglan (metoCLOPramide) 20 mg Route: IVP; Site: right forearm; kc4 22:13 Follow up: Response: No adverse reaction kc4 20:38 Drug: Pepcid (famotidine) 20 mg Route: IVP; Site: right forearm; kc4 22:13 Follow up: Response: No adverse reaction kc4 20:39 Drug: NS 0.9% 1000 ml Route: IV; Rate: 1 bolus; Site: right forearm; kc4 22:13 Follow up: Response: No adverse reaction; IV Status: Completed infusion kc4 20:42 Drug: diphenhydrAMINE 12.5 mg Route: IVP; Site: right forearm; kc4 22:13 Follow up: Response: No adverse reaction kc4 22:19 Drug: NS 0.9% 1000 ml Route: IV; Rate: 1 bolus; Site: right antecubital; kc4 23:55 Follow up: Response: No adverse reaction; IV Status: Completed infusion kc4 23:54 Drug: NS 0.9% 1000 ml Route: IV; Rate: 1 bolus; Site: right forearm; kc4 01/13 01:25 Follow up: IV Status: Completed infusion kc4 Outcome: 01:09 Discharge ordered by . hernesto 01:24 Discharged to home ambulatory, with family. kc4 01:24 Condition: improved 01:24 Discharge instructions given to patient, Instructed on discharge instructions, follow up and referral plans. Demonstrated understanding of instructions, follow-up care, medications, Prescriptions given X 2. 01:26 Patient left the ED. kc4 Signatures: Dispatcher [employer] Mustapha Gaona MD MD cha Mickail, Joel, PA PA jmm Martinez, Amelia as Garcia, Victoria, RN RN vg1 Leticia Gupta RN RN ll1 Lorie Baca kc4 Corrections: (The following items were deleted from the chart) 01/12 18:03 17:58 Chief complaint: Patient states: Abd pain with nausea for 3 weeks. Went to [facility] last week, Bentyl and sucralfate not helping. No fever. Feels dehydrated now. Tremors for 1 week. 1
[2021-01-13 02:55] VITALS: O2SAT 98
[2021-01-13 02:56] VITALS: BP 116/77; TEMP 98.6
--- NOTE | 2021-01-13 07:01 | RAD REPORT ---
EXAM DESCRIPTION: US - Abdomen Exam Limited - 01/12/2021 10:37 pm CLINICAL HISTORY: abdominal pain COMPARISON: Abdomen Pelvis W Contrast dated 12/17/2019 FINDINGS: The gallbladder demonstrates no gallstones. No pericholecystic fluid or gallbladder wall t hickening. The common bile duct is normal measuring 4 mm. The liver demonstrates no findings of intrahepatic biliary dilatation. IMPRESSION: Unremarkable examination.
--- NOTE | 2021-01-13 12:44 | RAD REPORT ---
EXAM DESCRIPTION: CT - Chest For Pe Angio - 01/13/2021 6:23 am CLINICAL HISTORY: Sob, vomiting. COMPARISON: None. TECHNIQUE: CTA of the chest, and CT of the abdomen and pelvis was performed following intravenous ad ministration of iodinated contrast. Axial soft tissue and lung window, and coronal and sagittal soft tissue window reconstructions were created and sent to PACS. 3D postprocessing was performed on an independent workstation, with images sent to PACS for subsequen t review. This exam was performed according to our departmental dose-optimization program, which includes autom ated exposure control, adjustment of the mA and/or kV according to patient size and/or use of iterati ve reconstruction technique. FINDINGS: Vascular: The pulmonary arteries are well-opacified to the segmental level. No CT evidence of acute pulmonary thromboembolism. No evidence of aortic aneurysm or dissection. Incidentally noted four-vessel aortic arch, normal variant. Lungs and pleura: No pulmonary consolidation. No pleural effusion. No pneumothorax. Mediastinum and neck: No mediastinal lymphadenopathy by CT size criteria. Unremarkable appearance of the thyroid gland. Cardiac: No cardiomegaly or pericardial effusion. Hepatobiliary: No concerning hepatic lesion identified. The portal veins are patent. The gallbladder is unremarkable. No biliary ductal dilatation. Pancreas: Unremarkable. Spleen: Unremarkable. Gastrointestinal: No evidence of bowel obstruction or perienteric inflammation. The appendix is bacilio l. Adrenals: No abnormality identified in either adrenal gland. Renal: No concerning parenchymal abnormality in either kidney. No hydronephrosis or urolithiasis. Bladder/Reproductive: Unremarkable appearance of the urinary bladder by CT technique. Unremarkable CT appearance of the uterus and ovaries. Vascular/Lymphatics: No lymphadenopathy identified by CT size criteria. Abdominal aorta is normal in caliber. Musculoskeletal: No concerning osseous lesion identified. Fluid / peritoneum: No significant free fluid. No free intraperitoneal air identified. IMPRESSION: 1. No acute pulmonary thromboembolism identified. 2. No acute abnormality identified in the chest, abdomen, or pelvis. Electronically signed by: Joan Richard MD 01/12/2021 10:58 PM MANAGING CONSULTANT CLINICAL PROFESSOR Due to temporary technical issues with the PACS/Fluency reporting system, reports are being signed by the in house radiologist without review as a courtesy to ensure prompt reporting. The interpreting r adiologist is fully responsible for the content of the report.
--- NOTE | 2021-01-13 12:49 | RAD REPORT ---
EXAM DESCRIPTION: CT - Abdomen Pelvis W Contrast - 01/13/2021 6:22 am CLINICAL HISTORY: Sob, vomiting. COMPARISON: None. TECHNIQUE: CTA of the chest, and CT of the abdomen and pelvis was performed following intravenous ad ministration of iodinated contrast. Axial soft tissue and lung window, and coronal and sagittal soft tissue window reconstructions were created and sent to PACS. 3D postprocessing was performed on an independent workstation, with images sent to PACS for subsequen t review. This exam was performed according to our departmental dose-optimization program, which includes autom ated exposure control, adjustment of the mA and/or kV according to patient size and/or use of iterati ve reconstruction technique. FINDINGS: Vascular: The pulmonary arteries are well-opacified to the segmental level. No CT evidence of acute pulmonary thromboembolism. No evidence of aortic aneurysm or dissection. Incidentally noted four-vessel aortic arch, normal variant. Lungs and pleura: No pulmonary consolidation. No pleural effusion. No pneumothorax. Mediastinum and neck: No mediastinal lymphadenopathy by CT size criteria. Unremarkable appearance of the thyroid gland. Cardiac: No cardiomegaly or pericardial effusion. Hepatobiliary: No concerning hepatic lesion identified. The portal veins are patent. The gallbladder is unremarkable. No biliary ductal dilatation. Pancreas: Unremarkable. Spleen: Unremarkable. Gastrointestinal: No evidence of bowel obstruction or perienteric inflammation. The appendix is bacilio l. Adrenals: No abnormality identified in either adrenal gland. Renal: No concerning parenchymal abnormality in either kidney. No hydronephrosis or urolithiasis. Bladder/Reproductive: Unremarkable appearance of the urinary bladder by CT technique. Unremarkable CT appearance of the uterus and ovaries. Vascular/Lymphatics: No lymphadenopathy identified by CT size criteria. Abdominal aorta is normal in caliber. Musculoskeletal: No concerning osseous lesion identified. Fluid / peritoneum: No significant free fluid. No free intraperitoneal air identified. IMPRESSION: 1. No acute pulmonary thromboembolism identified. 2. No acute abnormality identified in the chest, abdomen, or pelvis. Electronically signed by: Joan Richard MD 01/12/2021 10:58 PM ANIMAL RIDES MANAGER Due to temporary technical issues with the PACS/Fluency reporting system, reports are being signed by the in house radiologist without review as a courtesy to ensure prompt reporting. The interpreting r adiologist is fully responsible for the content of the report.
--- NOTE | 2021-01-13 16:58 | EKG ---
Test Date: 2021-01-12 Test Time: 20:22:19 [employer] Supervisor: ISATU MEASUREMENT RESULTS: Intervals: Rate: 113 MD: 152 QRSD: 76 QT: 350 QTc: 480 [place]: P: 20 MD: 152 QRS: 61 T: 39 INTERPRETIVE STATEMENTS: Sinus tachycardia Otherwise normal ECG No previous ECG available for comparison Electronically Signed On 01-13-21 16:57:01 MEDICAL OFFICE TECHNOLOGY INSTRUCTOR by Yobany Love
== END 2021-01-13 01:26 | disposition home or self-care (01) ==
LOC: ER 17:48
DX: R11.2 Nausea with vomiting, unspecified (principal); F32.A Depression, unspecified
CPT/HCPCS: 36415; 71045; 71275; 74177; 76705; 80048; 80076; 81003; 81025; 83690; 83735; 83880; 84484; 85025; 85610; 93005; J1200; J2765; J7030; Q9967

== ENCOUNTER 2021-01-20 12:41 | Emergency (ER) | payer SELFPAY ==
--- OUTSIDE RECORDS SUMMARY | 2021-01-20 12:45 | XMS REPORT | Continuity of Care Document ---
:2000 Author Organization [facility] t Address [address] [place] [address] Care Team Providers Name Role Phone Pcp, [...] Resolve Univers PCOS PCOS d [facility] of [place] [facility] Anxiety Anxiety Problem Active Univers [...] Active Univers ALLERGIE Class ity of S [facility] Family History Family Member Diagnosis Comments Start Date Stop Date Source [place] Family history of Univers [facility] depression Physicians Mother Family history of Univers [facility] depression Physicians Father Family history of Univers [facility] depression Physicians Social History Social Habit Start Date Stop Date Quantity Comments Source Exposure to Not sure [facility] SARS-CoV-2 (event) Medica l Branch Sex Assigned At [birth year] [facility] 00:00:00 00:00:00 Medical Branch Smoking Status Start Date Stop Date Source Unknown if ever smoked [facility] Never smoker [facility] Physicians Medications Ordered Filled Start [...] 01/01/21 at 2215, RAD dicyclomine 2020-02 Yes [id number] 20mg Take 1 Univers 20 mg 1-05 tablet by ity of tablet 00:00: mouth 4 00 (four) Medical times Branch daily as needed for Abdominal pain. sucralfate 2020-02 Yes [id number] 1g Take 1 U nivers 1 gram [...] ity of Tablet Tablet 00:00: N.P. DAILY. [place] 00 Physici ans metFORMIN metFORMIN Yes QD TAKE 1 Uni vers HCl - 500 HCl - 500 TABLET ity of MG Oral MG Oral DAILY [place] Tablet Tablet DIRECTED. Physic i ans Lexapro 10 Lexapro 10 Yes Uni vers MG Oral MG Oral ity of Tablet Tablet [place] [facility] Vital Signs Vital Name Observation Time Observation Value Comments Source Systolic blood 2021-01-02 138 mm[Hg] [facility] pressure 04:12:00 [facility] Diastolic blood 2021-01-02 85 mm[Hg] University o f pressure 04:12:00 [facility] Heart rate 2021-01-02 92 /min [facility] 04:12:00 [facility] Respiratory rate 2021-01-02 18 /min [facility] 04:12:00 [facility] Oxygen saturation 2021-01-02 100 /min [facility] Arterial blood 04:12:00 [facility] by Pulse oximetry [place] Body temperature 2021-01-02 37 [place]anca [facility] :35:00 [facility] Body height 2021-01-02 147.3 cm [facility] :35:00 [facility] Body weight 2021-01-02 78.926 kg [facility] :35:00 [facility] BMI 2021-01-02 36.37 kg/m2 [facility] :35:00 [facility] BP Systolic 2018-01-08 122 mm[Hg] Location: [facility] :35:00 Position: [place] [facility] Sitting BP Diastolic 2018-01-08 78 mm[Hg] Location: [facility] :35:00 Position: [place] [facility] Height 2018-01-08 62 [in_us] University of :35:00 [place] [facility] Weight 2018-01-08 138.6 [lb_av] University of :35: [place] [facility] Body Mass Index 2018-01-08 25.35 kg/m2 University o f Calculated :35:00 [place] [facility] Temperature 2018-01-08 97.6 [degF] University of :35: [place] [facility] Heart Rate 2018-01-08 65 /min University :35:00 [place] [facility] Respiration Rate 2018-01-08 16 /min [facility] :35:00 [place] [facility] O2 SAT 2018-01-08 100 % University of 11:35:00 [place] [facility] Procedures Procedure Date / Time Performed Performing Clinician Joselito e POCT TEST 2021-01-02 02:29:00 Louisa Payne [facility] LIPASE 2021-01-02 02:21:00 Louisa Payne [facility] COMP. METABOLIC PANEL 2021-01-02 02:21:00 Louisa Payne [facility] ([id number]) [facility] CBC WITH DIFF 2021-01-02 02:21:00 Louisa Payne [facility] COVID-19 (ID NOW 2021-01-02 02:21:00 Louisa Payne [facility] RAPID TESTING) [facility] NOTICE OF PRIVACY 2021-01-02 01:24:19 Doctor Unassigned, No Univ [facility] PRACTICES Name [facility] CONSENT/REFUSAL FOR 2021-01-02 01:23:58 Doctor Unassigned, No [facility] AND Name [facility] TREATMENT [QLH] CBC (INCLUDES 2018-01-08 00:00:00 [facility] DIFF/PLT) Physicians [QLH] CMP W/EGFR 2018-01-08 00:00:00 [facility] Physicians [facility] Physicians Encounters Start End Encounter Admission Attending Care Care Encounter Source Date/Time Date/Time Type Type Clinicians Facility Department ID 2021-01-01 2021-01-01 Emergency X [facility] ERT [id number] Univers 20:39:00 23:14:00 LOUISA arnold [facility] 2021-01-01 2021-01-01 Emergency [facility] [id number] Univers 20:39:00 23:14:00 Louisa BARRAZA [id number] ity [facility] [id number] [facility] [id number] [place] [id number] Branch 2019-11-28 2019-12-02 Outpatient HCPCDOCS HCPCDOCS [id number] 13:40:00 13:02:00 91 2018-02-08 2018-02-08 Appointmen ESME RAMOS [facility] [id number] Univers 12:00:00 12:00:00 t; GISELLE RAMOS, 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 METABOLIC PANEL (82178) 2021-01-02 02:42:21 Test Item Value Reference Range Interpretation Comme nts NA (test code = 4144502691) 138 mmol/L 135-145 K (test code = 8451264261) 4.0 mmol/L 3.5-5.0 CL (test code = 1096928266) 100 mmol/L 98-108 CO2 TOTAL (test code = 29 mmol/L 23-31 5593329513) AGAP (test code = 0688540893) 2-16 BUN (test code = 7297478869) 14 mg/dL 7-23 GLUCOSE (test code = 3715431621) 82 mg/dL 70-110 CREATININE (test code = 0.77 mg/dL 0.50-1.04 1721195230) TOTAL BILI (test code = 0.4 mg/dL 0.1-1.5 0759990151) CALCIUM (test code = 7312268377) 9.7 mg/dL 8.6-10.6 T PROTEIN (test code = 7.4 g/dL 6.3-8.2 5555672489) ALBUMIN (test code = 2705095718) 4.4 g/dL 3.5-5.0 ALK PHOS (test code = 3418629361) 116 U/L 34-122 ALTv (test code = 1742-6) 17 U/L 5-35 AST(SGOT) (test code = 23 U/L 13-40 0469900855) eGFR (test code = 2614965743) mL/min/1.73m2 CHRISTINE (test code = CHRISTINE) Association [...] or urine or abnormalities in imaging tests). [facility]41 Test Item Value Reference Range Interpretation Comments LIPASE (test code = 1666361641) 28 U/L 0-220 Lab Interpretation (test code = Normal 78025-6) [facility] [id number] 02:30:21 Test Item Value Reference Range Interpretation Comments WBC (test code = See_Comment [Automated 5575-2) message] The sy stem which generated this result transmitted reference range : 4.30 - 11.10 10*3/?L. The reference range was not used to interpret this result as normal/abnormal . RBC (test code = See_Comment [Automated 542-4) message] The sy stem which generated this [...] RDW-SD (test code = 44.4 fL 39.0-49.9 13145-7) RDW-CV (test code = 14.5 % 12.0-15.5 788-0) PLT (test code = See_Comment [Automated 777-3) message] The sy stem which generated this result transmitted reference range : 166 - 358 10*3/ ?L. The reference r maría was not used to interpret this result as normal/abnormal . MPV (test code = 9.0 fL 9.5-12.9 L 77193-7) NRBC/100 WBC (test See_Comment [Automat ed code = 9885565413) message] The system which generated this result transmitted reference range : 0.0 - 10.0 /100 WBCs. The refer ence range was not u sed to interpret th is result as normal/abnormal . NRBC x10^3 (test code <0.01 See_Comment [Auto mated = 6848403733) message] The s ystem which generated this result transmitted reference range : 10*3/?L. The reference range was not used to interpret this result as normal/abnormal . GRAN MAT (NEUT) % 64.8 % (test code = 770-8) IMM GRAN % (test code 0.30 % = 1991236974) LYMPH % (test code = 27.7 % 736-9) MONO % (test code = 6.2 % 5905-5) EOS % (test code = 0.6 % 713-8) BASO % (test code = 0.4 % 706-2) GRAN MAT x10^3(ANC) 6.27 10*3/uL 1.88-7.09 (test code = 9780006908) IMM GRAN x10^3 (test 0.03 10*3/uL 0.00-0.06 code = 1978798801) LYMPH x10^3 (test code 2.68 10*3/uL 1.32-3.29 = 731-0) MONO x10^3 (test code 0.60 10*3/uL 0.33-0.92 = 742-7) EOS x10^3 (test code = 0.06 10*3/uL 0.03-0.39 711-2) BASO x10^3 (test code 0.04 10*3/uL 0.01-0.07 = 704-7) Lab Interpretation Abnormal (test code = 20115-8) [facility] [id number] 02:29:00 Test Item Value Reference Range Interpretation Comments POCT PREG (test code = 1605) negative On board controls acceptable with present C Line (test code = 3574) POCT PREG LOT # (test code = 3575) [id number] POCT PREG TEST DATE (test code = 3576) Lab Interpretation (test code = Normal 76632-2) [facility]] CMP [id number] 10:11:00 Test Item Value Reference Range Interpretation Comments GLUCOSE; Normal 84 mg/dl 65-99 N Fasting refe rence (test code = interval 1547-9) UREA NITROGEN (BUN) 8 mg/dl 7-20 N (test code = UREA NITROGEN (BUN)) CREATININE (test 0.71 mg/dl 0.50-1.00 N code = CREATININE) eGFR NON- 124 {ML/MIN/1.7} > OR = [address] [facility] (test code = eGFR NON-) eGFR 144 {ML/MIN/1.7} > OR = [address] [facility] (test code = eGFR ) BUN/CREATININE NOT [...] mg/dl 0.2-1.1 N Normal (test code = 67115-5) ALKALINE PHSPHATASE 110 u/l 47-176 N (test code = ALKALINE PHSPHATASE) AST; Normal (test 12 u/l 12-32 N code = 1916-6) ALT; Normal (test 10 u/l 5-32 N code = 1742-6) [facility] Physicians[[facility]] CBC (INCLUDES DIFF/PLT)2018-01-10 10:11:00 Test Item Value Reference Range Interpretation Comments WHITE BLOOD CELL COUNT 7.1 {Thousand/u} 4.5-13.0 N (test code = WHITE BLOOD CELL COUNT) RED BLOOD CELL COUNT (test 4.25 {Million/uL} 3.80-5.10 N code = RED BLOOD CELL COUNT) HEMAGLOBIN; Normal (test 12.2 g/dl 11.5-15.3 N code = 83574-0) HEMATOCRIT; Normal (test 37.4 % 34.0-46.0 N code = 4544-3) MCV; Normal (test code = 88.0 fL 78.0-98.0 N 787-2) MCHC; Normal (test code = 32.6 g/dl 31.0-36.0 N 40116-3) RDW; Normal (test code = 12.9 % 11.0-15.0 N 788-0) PLATELET COUNT; Normal 251 {Thousand/u} 140-400 N (test code = 777-3) MPV; Normal (test code = 10.9 fL 7.5-12.5 N 58072-4) ABSOLUTE NEUTROPHILS (test 4367 {cells/uL} 8112-3361 N code = ABSOLUTE NEUTROPHILS) ABSOLUTE LYMPHOCYTES (test 2066 {cells/uL} 5707-6240 N code = ABSOLUTE LYMPHOCYTES) ABSOLUTE MONOCYTES (test 561 {cells/uL} 200-900 N code = ABSOLUTE MONOCYTES) ABSOLUTE EOSINOPHILS (test 78 {cells/uL} 15-500 N code = ABSOLUTE EOSINOPHILS) ABSOLUTE BASOPHILS (test 28 {cells/uL} 0-200 N code = ABSOLUTE BASOPHILS) NEUTROPHILS (test code = 61.5 % N NEUTROPHILS) LYMPHOCYTES (test code = 29.1 % N LYMPHOCYTES) MONOCYTES; Normal (test 7.9 % N code = 23530-4) EOSINOPHILS; Normal (test 1.1 % N code = 84551-8) BASOPHILS; Normal (test 0.4 % N code = 59001-4) [facility]"
[2021-01-20] MEDS ORDERED: ONDANSETRON 4 MG/2 ML VIAL ONE (14:42)
[2021-01-20] MEDS ORDERED: NA CHLORIDE 0.9% 1,000 ML ONE (14:42)
[2021-01-20 14:49] LABS: Urine Blood Trace-intact (Negative); Urine Glucose Negative (Negative); Urine Protein Negative (Negative)
[2021-01-20 14:55] LABS: Absolute Lymphocytes (CBC) 1.2 K/uL (0.7-4.9); Basophils % 0.1 % (0-1.3); Hematocrit 39.6 % (36.0-45.0); MPV 7.8 fL (7.6-11.3); RBC Red Blood Cell Count 4.88 M/uL (3.86-4.86)
[2021-01-20 15:11] LABS: ALT/SGPT 26 U/L (12-78); AST/SGOT 13 U/L (15-37); Albumin 3.9 g/dL (3.4-5.0); Alkaline Phosphatase 132 U/L (45-117); BUN Blood Urea Nitrogen 11 mg/dL (7-18); Bicarbonate 29 mmol/L (21-32); Bilirubin Direct < 0.1 mg/dL (0-0.2); Bilirubin Total 0.3 mg/dL (0.2-1.0); Glucose Level 102 mg/dL (74-106); Lipase 79 U/L (73-393); Potassium 4.1 mmol/L (3.5-5.1); Protein, Total 8.2 g/dL (6.4-8.2); Sodium Level 139 mmol/L (136-145)
--- NOTE | 2021-01-20 17:47 | EDPHYS ---
Physician Documentation [facility] Name: Violet Sams Age: 20 yrs Sex: Female : 2000 Arrival Date: 01/20/2021 Time: 12:43 Bed 19 Private MD: ED Physician Nestor Montero HPI: 01/20 13:41 This 20 yrs old Female presents to ER via Ambulatory with complaints of Abdominal Pain. [facility] 13:41 The patient presents with abdominal pain. Onset: The symptoms/episode began/occurred jmm today. The symptoms do not radiate. Associated signs and symptoms: Pertinent positives: nausea and vomiting. Is a 20-year-old female with a history of depression that presents emerged department with complaints of lower abdominal pain vomiting. Patient has been evaluated multiple times for similar episodes. Patient denies fever. Denies vaginal discharge. Denies dysuria.. 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 - Social history:: Smoking status: Patient denies any tobacco usage or history of. Patient/guardian denies using alcohol, street drugs. ROS: 13:41 Constitutional: Negative for fever, chills, and weight loss, Cardiovascular: Negative jmm for chest pain, palpitations, and edema, Respiratory: Negative for shortness of breath, cough, wheezing, and pleuritic chest pain. 13:41 Abdomen/GI: Positive for abdominal pain, vomiting. 13:41 All other systems are negative. Exam: 13:41 Constitutional: This is a well developed, well nourished patient who is awake, alert, jmm and in no acute distress. Head/Face: atraumatic. Eyes: EOMI, no conjunctival erythema appreciated ENT: Moist Mucus Membranes Neck: Trachea midline, Supple Chest/axilla: Normal chest wall appearance and motion. Cardiovascular: Regular rate and rhythm. No edema appreciated Respiratory: Normal respirations, no respiratory distress appreciated Abdomen/GI: Non distended, soft Back: Normal ROM Skin: General appearance color normal MS/ Extremity: Moves all extremities, no obvious deformities appreciated, no edema noted to the lower extremities Neuro: Awake and alert, normal gait Psych: Behavior is normal, Mood is normal, Patient is cooperative and pleasant Vital Signs: 12:49 BP 130 / 94; Pulse 101; Resp 18; Temp 98.2(O); Pulse Ox 100% on R/A; Weight 77.11 kg; ld1 Height 4 ft. 9 in. (144.78 cm); Pain 8/10; 14:45 BP 125 / 82; Pulse 97; Resp 18; Temp 98.4; Pulse Ox 99% on R/A; sl2 15:30 BP 122 / 76; Pulse 88; Resp 18; Temp 98.6; Pulse Ox 100% on R/A; sl2 16:30 BP 124 / 77; Pulse 78; Resp 18; Pulse Ox 100% on R/A; sl2 17:15 BP 123 / 70; Pulse 92; Resp 18; Temp 98.5(O); Pulse Ox 99% on R/A; sl2 12:49 Body Mass Index 36.79 (77.11 kg, 144.78 cm) ld1 MDM: 13:41 Patient medically screened. [facility] 17:45 Data reviewed: vital signs, nurses notes. [facility] 17:45 Counseling: I had a detailed discussion with the patient and/or guardian regarding: the [facility] historical points, exam findings, and any diagnostic results supporting the discharge/admit diagnosis, lab results, the need for outpatient follow up, to return to the emergency department if symptoms worsen or persist or if there are any questions or concerns that arise at home. ED course: Patient is alert and nontoxic in appearance in the ED. no signs of sepsis. Abdomen is soft. Repeat abdominal exam is benign. Patient advised follow-up gastroenterology and otherwise given strict return precautions. Patient understood agrees plan of care. Patient and mother understood and agreed plan of care.. 01/20 13:43 Order name: Basic Metabolic Panel; Complete Time: 15:13 [facility] 01/20 13:43 Order name: CBC with Diff; Complete Time: 15:04 [facility] 01/20 13:43 Order name: Hepatic Function; Complete Time: 15:13 [facility] 01/20 13:43 Order name: Lipase; Complete Time: 15:13 [facility] 01/20 14:49 Order name: Urine Dipstick-Ancillary; Complete Time: 15:04 [facility] 01/20 14:55 Order name: Urine --Ancillary (enter results) 1 01/20 13:43 Order name: IV Saline Lock; Complete Time: 14:40 [facility] 01/20 13:43 Order name: Labs collected and sent; Complete Time: 14:40 [facility] 01/20 13:46 Order name: Urine Dipstick-Ancillary (obtain specimen); Complete Time: 15:40 [facility] 01/20 13:46 Order name: Urine Test (obtain specimen); Complete Time: 15:39 [facility] 01/20 14:55 Order name: Urine --Ancillary EDMS Administered Medications: 14:43 Drug: NS 0.9% 1000 ml Route: IV; Rate: 1 bolus; Site: left forearm; sl2 18:20 Follow up: Response: No adverse reaction; IV Status: Completed infusion; IV Intake: ll1 1000ml 14:43 Drug: Zofran (Ondansetron) 4 mg Route: IVP; Site: left forearm; sl2 18:19 Follow up: Response: No adverse reaction ll1 Disposition: 18:32 Co-signature as Attending Physician, Nestor Montero MD I agree with the assessment and rn plan of care. Attestation: The patient's history, exam findings, diagnostics, and a summary of any interventions or procedures was reviewed in detail with Raymond DE LEÓN. Disposition Summary: 01/20/21 17:46 Discharge Ordered Location: Home [facility] Condition: Stable [facility] Diagnosis - Vomiting [facility] Followup: [facility] - With: Private Physician - When: 2 - 3 days - Reason: Recheck today's complaints, Continuance of care, Re-evaluation by your physician Discharge Instructions: - Discharge Summary Sheet jmm - Vomiting, Adult jm Forms: - Medication Reconciliation Form [facility] - Thank You Letter [facility] - Antibiotic Education [facility] - Prescription Opioid Use [facility] Prescriptions: - ondansetron 4 mg Oral tablet,disintegrating - place 1 tablet by TRANSLINGUAL route 4 times per day As needed; 20 tablet; [facility] Refills: 0, Product Selection Permitted Signatures: [facility] Raymond Mccarthy PA PA jmm Nieto, Roman, MD MD rn Zoya Toney RN RN ld1 Kirsten Suero RN RN sl2 Leticia Gupta RN ll1 Corrections: (The following items were deleted from the chart) 12:52 12:51 PSHx: Unable to Obtain; ld1 ld1
--- NOTE | 2021-01-20 17:47 | ER ---
Nurse's Notes [facility] Name: Violet Sams Age: 20 yrs Sex: Female : 2000 Arrival Date: 01/20/2021 Time: 12:43 Bed 19 Private MD: Diagnosis: Vomiting Presentation: 01/20 12:49 Chief complaint: Patient states: I began having sharp shooting abdomen pain around 1000 ld1 this morning with severe nausea and cold sweats. I came to the hospital last week for similar symptoms. Coronavirus screen: At this time, the client does not indicate any symptoms associated with coronavirus-19. Ebola Screen: No symptoms or risks identified at this time. Initial Sepsis Screen: Does the patient meet any 2 criteria? No. Patient's initial sepsis screen is negative. Does the patient have a suspected source of infection? No. Patient's initial sepsis screen is negative. Risk Assessment: Do you want to hurt yourself or someone else? Patient reports no desire to harm self or others. Onset of symptoms was January 20, 2021. 12:49 Method Of Arrival: Ambulatory ld1 12:49 Acuity: LAURA 3 ld1 Triage Assessment: 12:51 General: Appears in no apparent distress. comfortable, Behavior is calm, cooperative, ld1 appropriate for age. Pain: Complains of pain in suprapubic area, right lower quadrant and left lower quadrant Pain radiates to epigastric area, right upper quadrant and left upper quadrant Pain currently is 8 out of 10 on a pain scale. at worst was 10 out of 10 on a pain scale. Quality of pain is described as sharp, shooting, stabbing, Pain began suddenly, Is continuous. EENT: No signs and/or symptoms were reported regarding the EENT system. Neuro: Level of Consciousness is awake, alert, obeys commands, Oriented to person, place, time, situation, Appropriate for age. Cardiovascular: Capillary refill < 3 seconds Patient's skin is warm and dry. Respiratory: Airway is patent Respiratory effort is even, unlabored, Respiratory pattern is regular, symmetrical. GI: Abdomen is round non-distended. : No signs and/or symptoms were reported regarding the genitourinary system. Derm: No signs and/or symptoms reported regarding the dermatologic system. Musculoskeletal: No signs and/or symptoms reported regarding the musculoskeletal system. 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 - Social history:: Smoking status: Patient denies any tobacco usage or history of. Patient/guardian denies using alcohol, street drugs. Screenin:00 Abuse screen: Denies threats or abuse. Denies injuries from another. sl2 15:00 Nutritional screening: No deficits noted. Tuberculosis screening: No symptoms or risk sl2 factors identified. Fall Risk None identified. No fall in past 12 months (0 pts). No secondary diagnosis (0 pts). IV access (20 points). Ambulatory Aid- None/Bed Rest/Nurse Assist (0 pts). Gait- Normal/Bed Rest/Wheelchair (0 pts) Mental Status- Oriented to own ability (0 pts). Total Wells Fall Scale indicates No Risk (0-24 pts). Assessment: 18:19 Reassessment: No changes from previously documented assessment. Patient and/or family ll1 updated on plan of care and expected duration. Pain level reassessed. Patient is alert, oriented x 3, equal unlabored respirations, skin warm/dry/pink. 18:19 GI: Bowel sounds present X 4 quads. Abd is soft and non tender X 4 quads. ll1 Vital Signs: 12:49 BP 130 / 94; Pulse 101; Resp 18; Temp 98.2(O); Pulse Ox 100% on R/A; Weight 77.11 kg; ld1 Height 4 ft. 9 in. (144.78 cm); Pain 8/10; 14:45 BP 125 / 82; Pulse 97; Resp 18; Temp 98.4; Pulse Ox 99% on R/A; sl2 15:30 BP 122 / 76; Pulse 88; Resp 18; Temp 98.6; Pulse Ox 100% on R/A; sl2 16:30 BP 124 / 77; Pulse 78; Resp 18; Pulse Ox 100% on R/A; sl2 17:15 BP 123 / 70; Pulse 92; Resp 18; Temp 98.5(O); Pulse Ox 99% on R/A; sl2 12:49 Body Mass Index 36.79 (77.11 kg, 144.78 cm) ld1 ED Course: 12:43 Patient arrived in ED. mr 12:51 Triage completed. ld1 12:51 Arm band placed on left wrist. 1 13:16 Raymond Calloway PA is PHCP. [facility] 13:16 Nestor Montero MD is Attending Physician. [facility] 14:00 Kirsten Suero RN is Primary Nurse. 2 14:04 Patient has correct armband on for positive identification. Bed in low position. Call [facility] light in reach. Side rails up X 1. Warm blanket given. Pulse ox on. NIBP on. 15:00 No provider procedures requiring assistance completed. Inserted saline lock: 22 gauge sl2 in left forearm, using aseptic technique. 15:39 Urine --Ancillary (enter results) Sent. [facility] 15:40 Urine --Ancillary Sent. [facility] 18:19 IV discontinued, intact, bleeding controlled, No redness/swelling at site. Pressure 1 dressing applied. Administered Medications: 14:43 Drug: NS 0.9% 1000 ml Route: IV; Rate: 1 bolus; Site: left forearm; sl2 18:20 Follow up: Response: No adverse reaction; IV Status: Completed infusion; IV Intake: ll1 1000ml 14:43 Drug: Zofran (Ondansetron) 4 mg Route: IVP; Site: left forearm; sl2 18:19 Follow up: Response: No adverse reaction 1 Intake: 18:20 IV: 1000ml; Total: 1000ml. 1 Outcome: 17:46 Discharge ordered by . [facility] 18:19 Discharged to home ambulatory. 1 18:19 Condition: stable 18:19 Discharge instructions given to patient, Instructed on discharge instructions, follow up and referral plans. medication usage, Demonstrated understanding of instructions, follow-up care, medications, Prescriptions given X 1. 18:20 Patient left the ED. 1 Signatures: Raymond Calloway PA PA shalonda JaviRebecca Fay May 5 Leticia Gupta RN RN 1 Zoya Toney, RN RN ld1 Kirsten Suero, RN RN sl2 Corrections: (The following items were deleted from the chart) 12:52 12:51 PSHx: Unable to Obtain; dalton1 ld1
[2021-01-20 18:43] VITALS: BP 123/70; TEMP 98.5; O2SAT 99
== END 2021-01-20 18:20 | disposition home or self-care (01) ==
LOC: ER 12:41
DX: R11.10 Vomiting, unspecified (principal); F32.A Depression, unspecified
CPT/HCPCS: 36415; 80048; 80076; 81003; 81025; 83690; 85025; 96361; 96374; 99284; J2405; J7030